=== PATIENT | female | born 1985 | race Caucasian/White ===

== ENCOUNTER 2022-01-31 01:08 | Emergency (ER) | payer SELFPAY ==
--- OUTSIDE RECORDS SUMMARY | 2022-01-31 01:11 | XMS REPORT | Continuity of Care Document ---
:1985 Author Organization [facility] t Address [address] [place] [address] Care Team Providers Name Role Phone Asked, No Pcp Primary Care Physician Unavailable Alberto Mcdaniel [facility] Attending Clinician Unavailable ERASTO MORALES Attending Clinician Unavailable LEONEL MULLER Attending Clinician Unavailable Yusuf Dc MD Attending Clinician Physician, No Primary or Family Admitting Clinician UnavailJennie Berg MA Unavailable Unavailable Klever Miner PA-C Unavailable Payers Payer Name Policy Type Policy Number Effective Date Expiration Date S joann [employer] [place] D [id number] 2021 00:00:00 Women Problems Condition Condition Condition Status Onset Resolution Last Treating Co mments Source Name Details Category Date Date Treatment Clinician Date BMI BMI 91527-6 Active 2021-12-19 Silvana 2 .16.84 20.0-20.9, 20.0-20.9, 10:35:10 Jennie 0.1.113 adult adult 883.4.2 (Renamed (Renamed from Body from Body mass index mass index (BMI) of (BMI) of 20.0 to 20.0 to 20.9 in 20.9 in adult) adult) (Z68.20) (V85.1)RAMIRO Quiros [employer]iveries Deliveries 30372-8 Active 2021-12-19 Michael-Yado, 2.16. (Parity) (Parity)Cr 10:34:48 Jennie 0 .1.113 Anna 883.4.2 RAMIRO [place] ments: 3. Myalgia Myalgia 91798-9 Active 2021-12-20 Miner, 2.1 6.84 (M79.10) 11:03:27 Klever 0.1.11 3 (729.1)Pro 883.4. 2 gnosis: PE is benign- patient has been to ER x 3 with normal work up there. Will check mono for her fatigue/il lness. CT pelvis is WNL as well. Discussed with patient checking labs for autoimmune d/o as well. Encouraged counselroyal landeros. She complains of fatigue and inability to sleep. WIll send in a few days of atarax to help with her anxiety and insomnia. S/E discussed. as of LISA Villavicencio Pregnancie Pregnancie 98404-2 Active 2021-12-19 Michael-Yado, 2.1684 s s 10:34:44 Jennie 0.1.113 () ()C 883 .4.2 RAMIRO Edge ments: 3. Quit using Quit using 90800-9 Active 2021-12-19 Michael-Yado, 2. tobacco tobacco 10:35:01 Jennie 0.1.1 13 (Renamed (Renamed 883.4. 2 from Quit from Quit using using tobacco in tobacco in remote remote past) past) (Z91.89) (V15.89)RAMIRO [place] [address]-8 Active 2021-12-20 Miner, 2.16 alcoholism alcoholism 10:56:48 Klever 0.1.113 (F10.21) 883.4.2 (V11.3)LISA [place] [address]-4 Active 2021-12-20 Kristofer, 2. depression depression 10:56:32 Klever 0.1.113 (Z86.59) 883.4.2 (V11.8)LISA [place] [address]-8 Active 2021-12-20 Kristofer, 2. 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 lesion of lesion of 11:00:28 Klever 0. 1.113 back back 883.4.2 (L98.9) (709.9)Pro gnosis: questionab le etiology- she shows some pictures of the initial lesion and it's just an excoriated sore- this may be skin lesion secondary to chronic picking/ir ritation. Does not appear to be cancerous. She can make apt for excision. as of LISA Villavicencio Allergies, Adverse Reactions, Alerts Allergy Allergy Status Severity Reaction(s) Onset Inactive Treating Comm ents Source Name Type Date Date Clinician Morphine Propensi Active Hives 2021-02 Method i ty to 0-14 st adverse 00:00: Hospita reaction 00 l s to drug morphine DA Active [facility] [place] 00:00: [address] morphine DA Active AR RASH HIVES [facility] [place] 00:00: [address] Morphine Allergy Active 04.12.83 Derivati 0.1.113 ves 883.4.2 Social History Social Habit Start Date Stop Date Quantity Comments Source Alcohol Use: Non Drinker / No 2.16.8 40.1.091508 Alcohol Use. .4.2 Drug Use: No drug use. 2.840.1.1 55709 .4.2 Tobacco use: Never smoker. 2.840. 1.832778 .4.2 Tobacco/Smoke None. 2.840.1. 230026 Exposure: .4.2 Vaping/JUULing: Never smoker. 2.16.8 40.1.896676 .4.2 Sex Ass[birth year] At [birth year] [facility] 00:00:00 00:00:00 Hospital Smoking Status Start Date Stop Date Source Never smoked tobacco Tobacco smoking consumption unknown [facility] Medications Ordered Filled Start Stop Current Ordering Indication Dosage Frequency Signature Comments Components Source Medication Medication Date Date Medication? Clinician (SIG) Name Name Ibuprofen 2021-02 No Ibuprofen 2.1 6.84 800 MG Oral 0-25 800 MG 0.1.11 3 Tablet 10:33: Oral 883.4.2 00 Tablet; (800 MG) Ibuprofen 2021-02 No Ibuprofen 2.1 6.84 800 MG Oral 0-25 800 MG 0.1.11 3 Tablet 10:33: Oral 883.4.2 00 Tablet; (800 MG) Augmentin 2021-02 No Augmentin 2.1 6.84 0-25 0.1.113 10:32: 883.4.2 43 Augmentin 2021-02 No Augmentin 2.1 6.84 0-25 0.1.113 10:32: 883.4.2 43 hydrOXYzine 2021-02 No 0{Table hydrOXYzin Medicat io 2.16.84 HCl 25 MG 0-25 t} e HCl 25 n taken 0.1 .113 Oral Tablet 00:00: MG Oral as 883 .4.2 00 Tablet; needed. 1/2-1 Tablet at bedtime as needed for 5 days Quantity: 5 {Tablet}Re fills: 0Ordered: 2HLISA crespo JamieStart : 2Comments: Medication taken as needed. hydrOXYzine 2021-02 No 0{Table hydrOXYzin Medicat io 2.16.84 HCl 25 MG 0-25 t} e HCl 25 n taken 0.1 .113 Oral Tablet 00:00: MG Oral as 883 .4.2 00 Tablet; needed. 1/2-1 Tablet at bedtime as needed for 5 days Quantity: 5 {Tablet}Re fills: 0Ordered: 2HLISA crespo JamieStart : 2Comments: Medication taken as needed. doxycycline 2021-02 Yes 100mg Q.5D Take 1 Met [facility]odi (VIBRAMYCIN 0-[address] ) 100 MG 00:00: (100 mg Hospit a capsule 00 total) by l mouth 2 (two) times a day. doxycycline 2021-02 Yes 100mg Q.5D Take 1 Met hodi (VIBRAMYCIN 0-[address] ) 100 MG 00:00: (100 mg Hospit a capsule 00 total) by l mouth 2 (two) times a day. bacitracin 2021-02- Yes Q.5D Apply Metho di ointment 0-14 10-[address] tube 00:00: 04:59 2 (two) Hospita 00 :00 times a l day for 15 days. bacitracin 2021-02- No Q.5D Apply Metho di ointment 0-14 10-[address] tube 00:00: 04:59 2 (two) Hospita 00 :00 times a l day for 15 days. hydrOXYzine 2021-02- Yes 25mg Q6H Take 1 Met hodi (ATARAX) 25 0-14 10-25 tablet (25 s t MG tablet 00:00: 04:59 mg total) Ho spita 00 :00 by mouth l every 6 (six) hours for 10 days. hydrOXYzine 2021-02- No 25mg Q6H Take 1 Met hodi (ATARAX) 25 0-14 10-25 tablet (25 s t MG tablet 00:00: 04:59 mg total) Ho spita 00 :00 by mouth l every 6 (six) hours for 10 days. HYDROcodone 2021-02- Yes 35656 1{tbl} Q6H Take 1 Methodi -acetaminop 0-14 10-[address] hen (SiBEAM) 00:00: 04:59 mouth Hosp quoc 5-325 mg 00 :00 every 6 l per tablet (six) hours as needed for moderate pain for up to 7 days .acute pain. Max Daily Amount: 4 tablets HYDROcodone 2021-02- No 21134 1{tbl} Q6H Take 1 Methodi -acetaminop 0-14 10-[address] hen (SiBEAM) 00:00: 04:59 mouth Hosp quoc 5-325 mg 00 :00 every 6 l per tablet (six) hours as needed for moderate pain for up to 7 days .acute pain. Max Daily Amount: 4 tablets Vital Signs Vital Name Observation Time Observation Value Comments Source Temperature 2021-12-19 98.7 [degF] Method: Oral 2.16.840.1.1138 10:29: 83.4.2 Pulse 2021-12-19 86 /min Pattern: Regular 2..840.1. 1138 10:29: 83.4.2 Respiration Rate 2021-12-19 20 /min Pattern: 2.840.1. 1138 10:29:13 Unlabored 83.4.2 BP Systolic 2021-12-19 155 mm[Hg] Patient 2.16.840.1.1138 10:29:13 Position: 83.4.2 Sitting; Cuff Location: Left Arm; Cuff Size: Standard BP Diastolic 2021-12-19 99 mm[Hg] Patient 2.16.840.1.1138 10:29:13 Position: 83.4.2 Sitting; Cuff Location: Left Arm; Cuff Size: Standard Weight 2021-12-19 124.375 [lb_av] 2.16.840.1.1 138 10:29:13 83.4.2 Height 2021-12-19 65 [in_us] 2.16.840.1.1138 10:29:13 83.4.2 BMI 2021-12-19 20.70 kg/m2 2.16.840.1.1138 10:29: 83.4.2 Systolic blood 2021-12-08 142 mm[Hg] Religious pressure 17:30:00 Hospital Diastolic blood 2021-12-08 89 mm[Hg] Religious pressure 17:30:00 Hospital Heart rate 2021-12-08 56 /min Religious 17:30:00 Hospital Body temperature 2021-12-08 37 Pattie Religious 17:30:00 Hospital Respiratory rate 2021-12-08 17 /min Religious 17:30:00 Hospital Oxygen saturation 2021-12-08 96 /min Religious in Arterial blood 17:30:00 Hospital by Pulse oximetry Body height 2021-12-08 162.6 cm Religious 14:06:00 Hospital Body weight 2021-12-08 56.7 kg Religious 14:06:00 [facility] BMI 2021-12-08 21.46 kg/m2 Religious 14:06:00 Hospital Procedures Procedure Date / Time Performing Clinician Source Performed BMI IS DOCUMENTED WITHIN 2021-12-19 00:00:00 Klever Miner 2.1 6.840.1.294073.4 NORMAL PARAMETERS AND NO .2 FOLLOW-UP PLAN IS REQUIRED (G8420) PATIENT SCREENED FOR 2021-12-19 00:00:00 Klever Miner 2.16.84 0.1.376368.4 TOBACCO USE AND .2 IDENTIFIED A TOBACCO NON-USER (G9903) SCREENING FOR TOBACCO USE 2021-12-19 00:00:00 Klever Miner 2. 16.840.1.768872.4 (4004F) .2 HC COMPLETE BLD COUNT 2021-12-08 16:24:00 Yusuf Dc [facility] W/AUTO DIFF CT HEAD WO CONTRAST 2021-12-08 15:38:10 Yusuf Dc [facility] XR CHEST 1 VW PORTABLE 2021-12-08 15:37[facility] 2021-12-08 15:00:29 Yusuf Dc [facility] INTERPRETATION COMPREHENSIVE METABOLIC 2021-12-08 14:51:00 Yusuf Dc [facility] PANEL TROPONIN T 2021-12-08 14:51:00 [facility] 2021-12-08 14:51:00 Yusuf Dc [facility] SCREEN ESTIMATED GFR 2021-12-08 14:51:00 Yusuf Dc spital ECG 12-LEAD 2021-12-08 14:44:31 Yusuf Dc spital Annual Eye Exam - FOR Jennie Pina 2.16.84 0.1.522482.4 NON-DIABETICS ONLY .2 Appendectomy Jennie Pina 2.16.840.1.11 3883.4 .2 Delivery Jennie Pina 2.16.840.1. 847146.4 .2 Patient received annual Jennie Pina 2.16. 840.1.343388.4 dental check-up .2 Plan of Care Planned Activity Planned Date Details Comments Source Future Scheduled 2022-01-24 HEPATITIS B VACCINES Met [facility] Test 21:26:31 (1 of 3 - 3-dose series) [code = HEPATITIS B VACCINES (1 of 3 - 3-dose series)] Future Scheduled 2022-01-24 COVID-19 VACCINE (#1) [facility] Test 21:26:31 [code = COVID-19 VACCINE (#1)] Future Scheduled 2022-01-24 Hepatitis C screening [facility] Test 21:26:31 (procedure) [code = 122222954] Future Scheduled 2022-01-24 Screening for [facility] Test 21:26:31 malignant neoplasm of cervix (procedure) [code = 883260273] Future Scheduled 2022-01-24 INFLUENZA VACCINE Method [facility] Test 21:26:31 [code = INFLUENZA VACCINE] Diagnostic Test 2021-12-19 C-REACTIVE PROTEIN Pending 10:50:25 (95378) [code = 39586] Diagnostic Test 2021-12-19 C-REACTIVE PROTEIN Pending 10:50:25 (98929) [code = 66444] Diagnostic Test 2021-12-19 SED RATE ERYTHROCYTE Pending 10:50:19 (23089) [code = 50600] Diagnostic Test 2021-12-19 SED RATE ERYTHROCYTE Pending 10:50:19 (41316) [code = 89987] Diagnostic Test 2021-12-19 MONOSPOT SCREEN Pending 10:49:43 (92929) [code = 05732] Diagnostic Test 2021-12-19 MONOSPOT SCREEN Pending 10:49:43 (99676) [code = 34855] Diagnostic Test 2021-12-19 TSH (THYROID Pending 10:49:36 STIMULATING HORMONE) (07230) [code = 17811] Future Scheduled 2021-12-14 HEPATITIS B VACCINES Met [facility] Test 19:27:04 (1 of 3 - 3-dose series) [code = HEPATITIS B VACCINES (1 of 3 - 3-dose series)] Future Scheduled 2021-12-14 COVID-19 VACCINE (#1) [facility] Test 19:27:04 [code = COVID-19 VACCINE (#1)] Future Scheduled 2021-12-14 Hepatitis C screening Me [facility] Test 19:27:04 (procedure) [code = 807423579] Future Scheduled 2021-12-14 [facility] Test 19:27:04 malignant neoplasm of cervix (procedure) [code = 316707482] Future Scheduled 2021-12-14 INFLUENZA VACCINE Method [facility] Test 19:27:04 [code = INFLUENZA VACCINE] Encounters Start End Encounter Admission Attending Care Care Encounter Source Date/Time Date/Time Type Type Clinicians Facility Department ID 2021-12-17 Outpatient [place], [facility] [id number] -[id number] [place] 17:22:22 Replaced by [facility] [id number] [facility] [address] 2021-12-15 Outpatient [place], [facility] [id number] -[id number] [place] 10:10:04 Replaced by [facility] [id number] [facility] [address] 2021-12-14 Outpatient [place], [facility] [id number] -[id number] [place] 14:42:40 Replaced by [facility] [id number] [facility] [address] 2019-03-05 Inpatient [facility] [id number] [facility] 14:39:00 [id number] [facility] 2021-12-19 2021-12-20 Office 0 Alberto [id number] 10:00:00 11:03:47 Visit 06 2021-12-19 2021-12-19 Outpatient [place], [facility] 2468 [id number] [place] 10:15:00 10:15:00 Replaced by [facility] [id number] [facility] 2021-12-18 2021-12-19 Emergency E ANDREW, M[facility] M[facility]W [id number] MHTW 20:53:00 05:50:00 ERASTO 2021-12-14 2021-12-15 Emergency E YOHANA, MHTW MHTW 7512 MHTW 19:46:00 02:45:00 LEONEL 2021-12-08 2021-12-08 Emergency Dc, 1.2.840.1 [id number] Methodi 09:07:00 12:44:[address] 3.430.2.7 Hospit a .3.903023 l .8 2021-12-08 2021-12-08 Emergency Dc, 1.2.840.1 [id number] Methodi 09:07:00 12:44:00 Yus[address] Cordero [address] 3.430.2.7 Hospit a .3.819710 l .8 2021-12-08 2021-12-08 Travel 1.2.840.1 1.2.393.003 [id number] Methodi 00:00:00 00:00:[address] 3.430.2.7 0.2.7.3.698 Ho spita .3.976087 084.8 l .8 2021-12-08 2021-12-08 Travel 1.2.840.1 1.2.246.890 8480 [id number] Methodi 00:00:00 00:00:[address] 3.430.2.7 0.2.7.3.698 Ho spita .3.866489 084.8 l .8 2018-06-09 2018-06-09 Emergency E MHTW TW 7511 TW 13:55:00 13:55:00 Results Test Description Test Time Test Comments Results Result Comments Source TSH (THYROID STIMULATING HORMONE) (12181) 2021-12-19 00:00:0 0 Test Item Value Reference Range Interpretation Comme nts TSH (test code = 3016-3) 2.24 {mIU/L} N Ref erence Range > or = 20 Years 0.40-4.50 Range s First trimester 0.26-2.66 Second trimeste r 0.55-2.73 Third trimester 0.43-2.91Test P erformed at:[facility] [id number] [place] [address] ROHIT WHITNEY MD ECG 12 [id number] 20:07:15 Test Item Value Reference Range Interpretation Comments Ventricular rate (test code = 253) Atrial rate (test code = 255) GA interval (test code = 266) QRSD interval (test code = 260) QT interval (test code = 264) QTC interval (test code = 265) P axis 1 (test code = 267) QRS axis 1 (test code = 268) T wave axis (test code = 270) EKG impression (test Normal sinus code = 273) rhythm-Normal ECG-No previous ECGs available-Electronical ly Signed By John Meek MD ([id number]) on 12/13/2021 3:07:08 PM [facility] 12 [id number] 20:07:15 Test Item Value Reference Range Interpretation Comments Ventricular rate (test code = 253) Atrial rate (test code = 255) GA interval (test code = 266) QRSD interval (test code = 260) QT interval (test code = 264) QTC interval (test code = 265) P axis 1 (test code = 267) QRS axis 1 (test code = 268) T wave axis (test code = 270) EKG impression (test Normal sinus code = 273) rhythm-Normal ECG-No previous ECGs available-Electronical ly Signed By John Meek MD ([id number]) on 12/13/2021 3:07:08 [facility] [id number] 15:42:00 Test Item Value Reference Range Interpretation Comments TOTAL PROTEIN (test code 7.5 G/DL 6.4-8.2 N = PROT) ALBUMIN (test code = ALB) 3.2 G/DL 3.4-5.0 L BILIRUBIN TOTAL (test 0.33 MG/DL 0.00-1.00 N code = BILT) BILIRUBIN DIRECT (test 0.12 MG/DL 0.00-0.30 N code = BILD) BILIRUBIN INDIRECT (test 0.21 MG/DL 0.2-1.3 N code = BILIND) SGOT/AST (test code = 16 Unit/L 15-37 N AST) SGPT/ALT (test code = 29 Unit/L 12-78 N ALT) ALKALINE PHOSPHATASE 85 Unit/L 45-117 N TOTAL (test code = ALKP) INDEX HEMOLYSIS (test 1 NORMAL <10 MG 1 NORMAL code = HEMINDEX) Index/DL INDEX ICTERIC (test code 1 NORMAL <2 MG 1 NORMAL = ICTINDEX) Index/DL INDEX LIPEMIA (test code 1 NORMAL <50 MG 1 NORMAL = LIPINDEX) Index/DL [id number] 15:42:00 Test Item Value Reference Range Interpretation Comments LIPASE (test code = LIP) 42 Unit/L 114-286 L HEPATIC FUNCTION [id number] 15:34:00 Test Item Value Reference Range Interpretation Comments TOTAL PROTEIN (test code G/DL 6.4-8.2 = PROT) ALBUMIN (test code = ALB) G/DL 3.4-5.0 BILIRUBIN TOTAL (test MG/DL 0.00-1.00 code = BILT) BILIRUBIN DIRECT (test MG/DL 0.00-0.30 code = BILD) BILIRUBIN INDIRECT (test MG/DL 0.2-1.3 code = BILIND) SGOT/AST (test code = Unit/L 15-37 AST) SGPT/ALT (test code = Unit/L 12-78 ALT) ALKALINE PHOSPHATASE Unit/L 45-117 TOTAL (test code = ALKP) INDEX HEMOLYSIS (test 1 NORMAL <10 MG 1 NORMAL code = HEMINDEX) Index/DL INDEX ICTERIC (test code 1 NORMAL <2 MG 1 NORMAL = ICTINDEX) Index/DL INDEX LIPEMIA (test code 1 NORMAL <50 MG 1 NORMAL = LIPINDEX) Index/DL [id number] 15:34:00 Test Item Value Reference Range Interpretation Comments LIPASE (test code = LIP) Unit/L 114-286 CBC W/O [id number] 15:19:00 Test Item Value Reference Range Interpretation Comments WHITE BLOOD CELL (test code = WBC) 10.6 K/mm3 4.1-12.1 N RED BLOOD CELL (test code = RBC) 3.49 M/mm3 3.8-5.5 L HEMOGLOBIN (test code = HGB) 11.4 G/DL 10.6-15.8 N HEMATOCRIT (test code = HCT) 33.1 % 31.8-47.4 N MEAN CELL VOLUME (test code = MCV) 94.8 fL 80.1-101.1 N MEAN CELL HGB (test code = MCH) 32.7 pg 25.3-35.3 N MEAN CELL HGB CONCETRATION (test 34.4 G/DL 32.7-35.1 N code = MCHC) RED CELL DISTRIBUTION WIDTH (test 12.7 % 12.2-16.4 N code = RDW) PLATELET COUNT (test code = PLT) 406 K/mm3 155-337 H MEAN PLATELET VOLUME (test code = 9.2 fL 6.8-11.2 N MPV) CHEMISTRY 7 [id number] 15:15:00 Test Item Value Reference Range Interpretation Comments IONIZED CALCIUM (test mmol/L 1.13-1.32 code = CAIABG) ISTAT-TCO2 VENOUS (test MMOL/L 21-32 N code = TCO2VP) ISTAT-SODIUM (test code MMOL/L 135-148 = NAP) ISTAT-POTASSIUM (test MMOL/L 3.5-5.9 code = KP) ISTAT-CHLORIDE (test MMOL/L 98-106 code = CLP) ISTAT-ANION GAP (test MEQ/L 10-20 code = GAPP) ISTAT-GLUCOSE (test MG/DL 70-119 N code = GLUP) ISTAT-BUN (test code = MG/DL 8-28 L METHO D ALERT VALUE - BUNP) OUTSIDE METHOD DIAGNOSTIC LIMIT.EVALUATE WITH CAUTION, VALUE BELOW METHOD MEASUREM ENT LIMIT. BEDSIDE CREATININE MG/DL 0.6-1.2 N (test code = CREATBED) GLOMERULAR FILTRATION 117 64-149 N RATE POC (test code = GFRBED) CHEMISTRY 7 [id number] 15:15:00 Test Item Value Reference Range Interpretation Comments IONIZED CALCIUM 1.10 mmol/L 1.13-1.32 L (test code = CAIABG) ISTAT-TCO2 VENOUS 30 MMOL/L 21-32 N (test code = TCO2VP) ISTAT-SAMPLE SOURCE VENOUS SPECIMEN Specimen (test code = Descript SRCIST) ISTAT-SODIUM (test 139 MMOL/L 135-148 N code = NAP) ISTAT-POTASSIUM 3.8 MMOL/L 3.5-5.9 N (test code = KP) ISTAT-CHLORIDE 100 MMOL/L 98-106 N (test code = CLP) ISTAT-ANION GAP 14.0 MEQ/L 10-20 N (test code = GAPP) ISTAT-GLUCOSE (test 105 MG/DL 70-119 N code = GLUP) ISTAT-BUN (test <5 BELOW LO 8-28 L METHOD ALERT VALUE code = BUNP) LIMIT MG/DL - OUTSIDE METHO D DIAGNOSTIC LIMIT.EVALUATE WITH CAUTION, VALUE BELOW METHOD MEASUREMENT MCKEON IT. BEDSIDE CREATININE 0.6 MG/DL 0.6-1.2 N (test code = CREATBED) GLOMERULAR 117 64-149 N FILTRATION RATE POC (test code = GFRBED) UA RFLX MICR CULT IF [id number] 15:13:00 Test Item Value Reference Range Interpretation Comments UA COLOR (test code = YELLOW DESCRIPT YELLOW COLU) UA APPEARANCE (test code HAZY DESCRIPT CLEAR = APPU) UA GLUCOSE DIPSTICK (test NEGATIVE (0) mg/dL (NEG) 0 code = DGLUU) UA BILIRUBIN DIPSTICK NEGATIVE (0) mg/dL (NEG) 0 (test code = BILU) UA KETONE DIPSTICK (test 0 (NEG) mg/dL (NEG) 0 code = KETU) UA SPECIFIC GRAVITY (test 1.015 SG 1.001-1.035 code = SGU) UA BLOOD DIPSTICK (test 0.06-0.10 (1+) mg/DL (NEG) 0 A code = LIBERTAD) UA PH DIPSTICK (test code 6.0 pH UNITS 4.6-8.0 = EUGENIO) UA PROTEIN DIPSTICK (test NEGATIVE (0) mg/dL <30 (1+) code = PROU) UA UROBILINIOGEN DIPSTICK NORMAL (0) mg/dL <2.0 (1+) (test code = URO) UA NITRITE DIPSTICK (test NEGATIVE (0) SCREEN NEG code = MALIHA) UA LEUKOCYTE ESTERASE 250 (2+) Leuk/mcL (NEG) 0 A DIPSTICK (test code = LEUU) UA COMMENT (test code = CLEAN CATCH SPEC SpecComment COMU) Notes UA WBC (test code = WBCU) 30-40 #WBC/HPF 0-3 A UA RBC (test code = RBCU) 0-3 #RBC/HPF 0-3 UA SQUAMOUS CELLS (test FEW >2 /HPF NONE-SQepi code = SQU) UA MUCUS (test code = RARE /LPF NONE MUCU) UA CULTURE NEEDED? (test Crit met CULT-OK Cult byWBC code = UACULT) Criteria Indication for culture: ABD PAINUR HCG [id number] 15:13:00 Test Item Value Reference Range Interpretation Comments UR HCG QUAL (test code = HCGQLU) NEG Indication for culture: ABD PAINUA RFLX MICR CULT IF [id number] 15:13:00 Test Item Value Reference Range Interpretation Comments UA COLOR (test code = YELLOW DESCRIPT YELLOW COLU) UA APPEARANCE (test code HAZY DESCRIPT CLEAR = APPU) UA GLUCOSE DIPSTICK (test NEGATIVE (0) mg/dL (NEG) 0 code = DGLUU) UA BILIRUBIN DIPSTICK NEGATIVE (0) mg/dL (NEG) 0 (test code = BILU) UA KETONE DIPSTICK (test 0 (NEG) mg/dL (NEG) 0 code = KETU) UA SPECIFIC GRAVITY (test 1.015 SG 1.001-1.035 code = SGU) UA BLOOD DIPSTICK (test 0.06-0.10 (1+) mg/DL (NEG) 0 A code = LIBERATD) UA PH DIPSTICK (test code 6.0 pH UNITS 4.6-8.0 = EUGENIO) UA PROTEIN DIPSTICK (test NEGATIVE (0) mg/dL <30 (1+) code = PROU) UA UROBILINIOGEN DIPSTICK NORMAL (0) mg/dL <2.0 (1+) (test code = URO) UA NITRITE DIPSTICK (test NEGATIVE (0) SCREEN NEG code = MALIHA) UA LEUKOCYTE ESTERASE 250 (2+) Leuk/mcL (NEG) 0 A DIPSTICK (test code = LEUU) UA COMMENT (test code = CLEAN CATCH SPEC SpecComment COMU) Notes UA WBC (test code = WBCU) 30-40 #WBC/HPF 0-3 A UA RBC (test code = RBCU) 0-3 #RBC/HPF 0-3 UA SQUAMOUS CELLS (test FEW >2 /HPF NONE-SQepi code = SQU) UA MUCUS (test code = RARE /LPF NONE MUCU) UA CULTURE NEEDED? (test Crit met CULT-OK Cult byWBC code = UACULT) Criteria Indication for culture: ABD PAINUR HCG [id number] 15:13:00 Test Item Value Reference Range Interpretation Comments UR HCG QUAL (test NEGATIVE NEG Very dilut e urines with a code = HCGQLU) low specific gravity may notcontain repr esentative levels of hCG. Indication for culture: ABD PAIN
[2022-01-31] MEDS ORDERED: NA CHLORIDE 0.9% 500 ML ONE (01:34)
[2022-01-31 02:09] LABS: Absolute Lymphocytes (CBC) 1.3 K/uL (0.7-4.9); Lymphocytes % 18.3 % (15.3-44.8); MCV 91.9 fL (80-100); RBC Red Blood Cell Count 4.25 M/uL (3.86-4.86)
[2022-01-31 02:18] LABS: Albumin 3.8 g/dL (3.4-5.0); Bilirubin Total 0.3 mg/dL (0.2-1.0); Potassium 3.3 mmol/L (3.5-5.1); Protein, Total 7.2 g/dL (6.4-8.2)
[2022-01-31 02:18] LABS: Urine Blood 3+ (Negative); Urine Glucose Negative (Negative); Urine Protein 2+ (Negative); Urine Specific Gravity 1.025 (1.005-1.030); Urine pH 6.5 (5.0-7.0)
[2022-01-31] MEDS ORDERED: CEFTRIAXONE 1000 MG/VIAL ONE (02:44)
--- NOTE | 2022-01-31 03:20 | EDPHYS ---
Physician Documentation [facility] Name: Betzaida Ceja Age: 36 yrs Sex: Female : 1985 Arrival Date: 01/31/2022 Time: 01:13 Bed 8 Private MD: Elie Mason HPI: 01/31 01:31 This 36 yrs old Female presents to ER via Unassigned with complaints of tomasa Vaginal Pain, Rib pain. 01:31 The patient presents with urinary symptoms, vaginal bleeding that is. Onset: The tomasa symptoms/episode began/occurred 2 day(s) ago. Modifying factors: The symptoms are alleviated by nothing, the symptoms are aggravated by nothing. Associated signs and symptoms: The patient has no apparent associated signs or symptoms. Severity of symptoms: At their worst the symptoms were mild, moderate, in the emergency department the symptoms are unchanged. The patient is sexually active, reportedly has a single partner. The patient has not experienced similar symptoms in the past. 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 - Social history:: Smoking status: Patient denies any tobacco usage or history of. - Family history:: not pertinent. ROS: 01:31 Constitutional: Negative for fever, chills, and weight loss, Eyes: Negative for injury, tomasa pain, redness, and discharge, ENT: Negative for injury, pain, and discharge, Neck: Negative for injury, pain, and swelling, Cardiovascular: Negative for chest pain, palpitations, and edema, Respiratory: Negative for shortness of breath, cough, wheezing, and pleuritic chest pain, Abdomen/GI: Negative for abdominal pain, nausea, vomiting, diarrhea, and constipation, Back: Negative for injury and pain, MS/Extremity: Negative for injury and deformity, Skin: Negative for injury, rash, and discoloration, Neuro: Negative for headache, weakness, numbness, tingling, and seizure, Psych: Negative for depression, anxiety, suicide ideation, homicidal ideation, and hallucinations, Allergy/Immunology: Negative for hives, rash, and allergies, Endocrine: Negative for neck swelling, polydipsia, polyuria, polyphagia, and marked weight changes, Hematologic/Lymphatic: Negative for swollen nodes, abnormal bleeding, and unusual bruising. :31 : Positive for pelvic pain, burning with urination, difficulty urinating, vaginal bleeding. Exam: :31 Constitutional: This is a well developed, well nourished patient who is awake, alert, tomasa and in no acute distress. Head/Face: Normocephalic, atraumatic. Eyes: Pupils equal round and reactive to light, extra-ocular motions intact. Lids and lashes normal. Conjunctiva and sclera are non-icteric and not injected. Cornea within normal limits. Periorbital areas with no swelling, redness, or edema. ENT: Nares patent. No nasal discharge, no septal abnormalities noted. Tympanic membranes are normal and external auditory canals are clear. Oropharynx with no redness, swelling, or masses, exudates, or evidence of obstruction, uvula midline. Mucous membranes moist. Neck: Trachea midline, no thyromegaly or masses palpated, and no cervical lymphadenopathy. Supple, full range of motion without nuchal rigidity, or vertebral point tenderness. No Meningismus. Chest/axilla: Normal chest wall appearance and motion. Nontender with no deformity. No lesions are appreciated. Cardiovascular: Regular rate and rhythm with a normal S1 and S2. No gallops, murmurs, or rubs. Normal PMI, no JVD. No pulse deficits. Respiratory: Lungs have equal breath sounds bilaterally, clear to auscultation and percussion. No rales, rhonchi or wheezes noted. No increased work of breathing, no retractions or nasal flaring. Back: No spinal tenderness. No costovertebral tenderness. Full range of motion. Skin: Warm, dry with normal turgor. Normal color with no rashes, no lesions, and no evidence of cellulitis. MS/ Extremity: Pulses equal, no cyanosis. Neurovascular intact. Full, normal range of motion. Neuro: Awake and alert, GCS 15, oriented to person, place, time, and situation. Cranial nerves II-XII grossly intact. Motor strength 5/5 in all extremities. Sensory grossly intact. Cerebellar exam normal. Normal gait. Psych: Awake, alert, with orientation to person, place and time. Behavior, mood, and affect are within normal limits. 01:31 Abdomen/GI: Inspection: abdomen appears normal, Bowel sounds: normal, Palpation: mild abdominal tenderness, in the left lower quadrant, Liver: no appreciated palpable abnormalities, Hernia: not appreciated. 02:00 : CVA tenderness, is absent, Pelvic Exam: External exam: is normal, Speculum exam: tomasa scant bleeding, bimanual exam reveals normal findings, no cervical motion tenderness, discharge, is not appreciated, the nurse was present for the exam, Bladder: is normal, non-distended, non-tender, Sexual behavior: the patient is sexually active. Vital Signs: 01:31 BP 142 / 96; Pulse 108; Resp 16 S; Temp 98.4(O); Pulse Ox 100% on R/A; Weight 53.98 kg bb (R); Height 5 ft. 4 in. (162.56 cm) (R); Pain 4/10; 02:30 BP 155 / 100; Pulse 90; Resp 16; Pulse Ox 100% on R/A; ll3 03:31 BP 140 / 105; Pulse 87; Resp 16; Pulse Ox 100% on R/A; ll3 04:34 BP 142 / 104; Pulse 89; Resp 16; Pulse Ox 100% on R/A; ll3 01:31 Body Mass Index 20.43 (53.98 kg, 162.56 cm) bb MDM: 01:21 Patient medically screened. tomasa 01:58 Differential diagnosis: dysmenorrhea, menometrorrhagia, nonspecific abdominal pain, tomasa urinary tract infection. Data reviewed: vital signs, nurses notes, lab test result(s), radiologic studies, CT scan. Data interpreted: front desk monitor: rate is 108 beats/min, rhythm is regular, Pulse oximetry: on room air is 100 %. Counseling: I had a detailed discussion with the patient and/or guardian regarding: the historical points, exam findings, and any diagnostic results supporting the discharge/admit diagnosis, lab results, radiology results, the need for outpatient follow up, for definitive care, an OB/Gyne specialist. 01/31 01:30 Order name: CBC with Diff; Complete Time: 03:19 tomasa 01/31 01:30 Order name: Comprehensive Metabolic Panel; Complete Time: 03:19 [facility] 01/31 01:30 Order name: Urine Culture [facility] 01/31 01:30 Order name: CT Abd/Pelvis - IV Contrast Only [facility] 01/31 02:18 Order name: Urine Dipstick-Ancillary; Complete Time: 03:19 EDMS 01/31 02:39 Order name: Urine --Ancillary (enter results) mw2 01/31 01:30 Order name: Urine Dipstick-Ancillary (obtain specimen); Complete Time: 02:32 [facility] 01/31 01:30 Order name: Urine Test (obtain specimen); Complete Time: 02:37 [facility] 01/31 01:30 Order name: Pelvic Exam Setup; Complete Time: 02:32 [facility] Administered Medications: 01:50 Drug: NS 0.9% 500 ml Route: IV; Rate: bolus; Site: right antecubital; ll3 02:59 Drug: Rocephin (cefTRIAXone) 1 grams Route: IV; Rate: per protocol; Site: right ll3 antecubital; Disposition Summary: 01/31/22 03:19 Discharge Ordered Location: Home tomasa Problem: new tomasa Symptoms: have improved tomasa Condition: Stable tomasa Diagnosis - Other specified abnormal uterine and vaginal bleeding tomasa - Dysmenorrhea, unspecified tomasa - Hypokalemia tomasa - Other hemorrhoids - NOT THROMBOSED, NOT BLEEDING tomasa Followup: tomasa - With: Private Physician - When: 2 - 3 days - Reason: Recheck today's complaints, Re-evaluation by your physician Followup: tomasa - With: - When: 2 - 3 days - Reason: Recheck today's complaints, Continuance of care, Re-evaluation by your physician Followup: tomasa - With: Tabatha Yancey MD - When: 2 - 3 days - Reason: Recheck today's complaints, Re-evaluation by your physician Discharge Instructions: - Discharge Summary Sheet tomasa - Potassium Content of Foods tomasa - Dysmenorrhea tomasa - Menorrhagia tomasa - Metrorrhagia tomasa - Hemorrhoids tomasa - Menorrhagia, [id number] tomasa - Dysmenorrhea, [id number] tomasa - Metrorrhagia, [id number] tomasa - Hypokalemia tomasa - How to Take a Sitz Bath tomasa - Hemorrhoids, [id number] tomasa Forms: - Medication Reconciliation Form tomasa - Thank You Letter tomasa - Antibiotic Education tomasa - Prescription Opioid Use tomasa Prescriptions: - Cipro 250 mg Oral Tablet - take 1 tablet by ORAL route every 12 hours; 14 tablet; Refills: 0, Product [facility] Selection Permitted - Tylenol-Codeine #3 300 mg-30 mg Oral - take 2 tablet by ORAL route every 6 hours; 15 tablet; Refills: 0, Product [facility] Selection Permitted Signatures: Dispatcher [employer] Elie Sheridan MD MD cha Ballard, Brenda RN RN bb Ashley Connor RN RN ll3
--- NOTE | 2022-01-31 03:20 | ER ---
Nurse's Notes [facility] Name: Betzaida Ceja Age: 36 yrs Sex: Female : 1985 Arrival Date: 01/31/2022 Time: 01:13 Bed 8 Private MD: Diagnosis: Other specified abnormal uterine and vaginal bleeding;Dysmenorrhea, unspecified;Hypokalemia;Other hemorrhoids-NOT THROMBOSED, NOT BLEEDING Presentation: 01/31 01:31 Chief complaint: Patient states: she is having some unusual vaginal bleeding with dull bb abdominal pain since yesterday. Coronavirus screen: At this time, the client does not indicate any symptoms associated with coronavirus-19. Ebola Screen: No symptoms or risks identified at this time. Initial Sepsis Screen: Does the patient meet any 2 criteria? No. Patient's initial sepsis screen is negative. Does the patient have a suspected source of infection? No. Patient's initial sepsis screen is negative. Risk Assessment: Do you want to hurt yourself or someone else? Patient reports no desire to harm self or others. Onset of symptoms was January 30, 2022. 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 - Social history:: Smoking status: Patient denies any tobacco usage or history of. - Family history:: not pertinent. Screenin:29 Abuse screen: Denies threats or abuse. Denies injuries from another. Nutritional ll3 screening: No deficits noted. Tuberculosis screening: No symptoms or risk factors identified. Fall Risk None identified. Assessment: 01:30 General: Appears uncomfortable, Behavior is calm, cooperative. Pain: Complains of pain ll3 in pelvis Pain does not radiate. Neuro: Level of Consciousness is awake, alert, obeys commands, Oriented to person, place, time, situation. Respiratory: Respiratory effort is even, unlabored, Respiratory pattern is regular, symmetrical. : Reports pain in suprapubic area vaginal bleeding that is. Derm: Skin is pink, warm \T\ dry. 02:30 Reassessment: No changes from previously documented assessment. Patient and/or family ll3 updated on plan of care and expected duration. Pain level reassessed. Patient is alert, oriented x 3, equal unlabored respirations, skin warm/dry/pink. 03:31 Reassessment: No changes from previously documented assessment. Patient and/or family ll3 updated on plan of care and expected duration. Pain level reassessed. Patient is alert, oriented x 3, equal unlabored respirations, skin warm/dry/pink. Vital Signs: 01:31 BP 142 / 96; Pulse 108; Resp 16 S; Temp 98.4(O); Pulse Ox 100% on R/A; Weight 53.98 kg bb (R); Height 5 ft. 4 in. (162.56 cm) (R); Pain 4/10; 02:30 BP 155 / 100; Pulse 90; Resp 16; Pulse Ox 100% on R/A; ll3 03:31 BP 140 / 105; Pulse 87; Resp 16; Pulse Ox 100% on R/A; ll3 04:34 BP 142 / 104; Pulse 89; Resp 16; Pulse Ox 100% on R/A; ll3 01:31 Body Mass Index 20.43 (53.98 kg, 162.56 cm) bb ED Course: 01:13 Patient arrived in ED. bp1 01:21 Elie Acosta MD is Attending Physician. tomasa 01:33 Triage completed. bb 01:33 Arm band placed on Patient placed in an exam room, on a stretcher, on pulse oximetry. bb 01:50 Inserted saline lock: 22 gauge in right antecubital area, using aseptic technique. ll3 Blood collected. 02:56 CT Abd/Pelvis - IV Contrast Only In Process Unspecified. EDMS 03:19 You Patel MD is Referral Physician. tomasa 03:29 Patient has correct armband on for positive identification. Placed in gown. Bed in low ll3 position. Call light in reach. Side rails up X 1. 03:29 Assist provider with pelvic exam: Set up pelvic tray. Performed by Elie Acosta MD ll3 Patient tolerated well. 04:19 Referral Physician role handed off by You Patel MD [facility] 04:19 Tabatha Yancey MD is Referral Physician. [facility] 04:33 IV discontinued, intact, bleeding controlled, No redness/swelling at site. Pressure ll3 dressing applied. Administered Medications: 01:50 Drug: NS 0.9% 500 ml Route: IV; Rate: bolus; Site: right antecubital; ll3 02:59 Drug: Rocephin (cefTRIAXone) 1 grams Route: IV; Rate: per protocol; Site: right ll3 antecubital; Medication: 03:30 VIS not applicable for this client. ll3 Outcome: 03:19 Discharge ordered by MD. [facility] 04:33 Discharged to home ambulatory. ll3 04:33 Condition: stable 04:33 Discharge instructions given to patient, Instructed on discharge instructions, follow up and referral plans. medication usage, Demonstrated understanding of instructions, follow-up care, medications, Prescriptions given X 2. 04:34 Patient left the ED. ll3 Signatures: Dispatcher [employer] EDMS Elie Acosta MD MD cha Ballard, Brenda, RN RN Mayra Mcclellan Lyn[place], RN RN ll3
[2022-01-31 03:33] LABS: Urine Specific Gravity/Preg 1.025 (1.005-1.030)
[2022-01-31 12:09] VITALS: TEMP 98.4; O2SAT 100
[2022-01-31 12:13] VITALS: BP 140/105
--- NOTE | 2022-01-31 14:54 | RAD REPORT ---
EXAM DESCRIPTION: CT - Abdomen Pelvis W Contrast - 01/31/2022 7:15 am CLINICAL HISTORY: 36 years, Female, na COMPARISON: None. TECHNIQUE: Contrast-enhanced images of the abdomen and pelvis were performed utilizing 5 mm slice th ickness at 5 mm interval reconstruction from the lung bases to the ischial tuberosities after the adm inistration of IV contrast. In addition multiplanar reformats in the coronal and sagittal plane were obtained and reviewed. This exam was performed according to our departmental dose-optimization protocol, which includes auto mated exposure control, adjustment of the mA and/or kV according to patient size and/or use of iterat irasema reconstruction technique. FINDINGS: The lung bases demonstrate to be clear. The liver, gallbladder, pancreas, spleen and adrenal glands demonstrate to be unremarkable, no focal lesions are noted. The kidneys demonstrate normal uptake of contrast media. No evidence for nephrolithiasis and/or hydro nephrosis. Grossly the unopacified stomach demonstrated presence of surgical clips within the region of the less er curvature of the stomach, small bowel and large bowel demonstrate to be within normal limits. Th ere is no evidence for bowel dilatation/or free air. The appendix was not visualized although no si gnificant inflammatory changes are seen within the right lower quadrant. There is mild fecal stasis. The urinary bladder demonstrate to be unremarkable. The uterus is unremarkable. There are no adnexa l masses. Findings suggest perhaps tubal ligation with clips along the left pelvic region. The aorta demonstrate to be normal. There is no retroperitoneal lymphadenopathy. There is no evidence for asc ites/or significant abnormal fluid collections. The rest of the soft tissue and bony structures are w ithin normal limits. IMPRESSION: Mild fecal stasis. Surgical clips lesser curvature of the stomach area. Otherwise unremarkable CT scan of the abdomen and pelvis with contrast. Electronically signed by: Christophe Madsen MD 01/31/2022 3:19 AM DRAMATIC COACH Due to temporary technical issues with the PACS/Fluency reporting system, reports are being signed by the in house radiologists without review as a courtesy to insure prompt reporting. The interpreting radiologist is fully responsible for the content of the report.
== END 2022-01-31 04:34 | disposition home or self-care (01) ==
LOC: ER 01:08
DX: N94.6 Dysmenorrhea, unspecified (principal); E87.6 Hypokalemia; K64.8 Other hemorrhoids
CPT/HCPCS: 36415; 74177; 80053; 81003; 81025; 85025; 87086; 87088; J7040; Q9967

== ENCOUNTER 2022-02-07 22:08 | Emergency (ER) | payer SELFPAY ==
--- OUTSIDE RECORDS SUMMARY | 2022-02-07 22:12 | XMS REPORT | Continuity of Care Document ---
:1985 Author Organization [facility] t Address [address] [place] [address] Care Team Providers Name Role Phone Asked, No Pcp Primary Care Physician Unavailable Alberto Mcdaniel [facility] Attending Clinician Unavailable ERASTO MORALES Attending Clinician Unavailable LEONEL MULLER Attending Clinician Unavailable Yusuf Dc MD Attending Clinician Physician, No Primary or Family Admitting Clinician UnavailJennie Berg MA Unavailable Unavailable Klever Miner PA-C Unavailable Payers Payer Name Policy Type Policy Number Effective Date Expiration Date S joann [employer] [place] D [id number] 2021 00:00:00 Women Problems Condition Condition Condition Status Onset Resolution Last Treating Co mments Source Name Details Category Date Date Treatment Clinician Date BMI BMI 52100-1 Active 2021-12-19 Singh Pina .16.84 20.0-20.9, 20.0-20.9, 10:35:10 Jennie 0.1.113 adult adult 883.4.2 (Renamed (Renamed from Body from Body mass index mass index (BMI) of (BMI) of 20.0 to 20.0 to 20.9 in 20.9 in adult) adult) (Z68.20) (V85.1)Russelu RAMIRO Becerril [employer] Deliveries 44207-0 Active 2021-12-19 Michael-Yado, 2. (Parity) (Parity)Cr 10:34:48 Jennie 0 .1.113 Anna 883.4.2 RAMIRO [place] ments: 3. Myalgia Myalgia 38721-7 Active 2021-12-20 Miner, 2.1 6.84 (M79.10) 11:03:27 [...] discussed. as of LISA Villavicencio Pregnancie Pregnancie 52163-1 Active 2021-12-19 Michael-Yado, 2.16 s s 10:34:44 Jennie 0.1.113 () ()C 883 .4.2 RAMIRO Edge ments: 3. Quit using Quit using 46779-9 Active 2021-12-19 Michael-Yado, 2. tobacco tobacco 10:35:01 Jennie 0.1.1 13 (Renamed (Renamed 883.4. 2 from Quit from Quit using using tobacco in tobacco in remote remote past) past) (Z91.89) (V15.89)RAMIRO [place] [address]-9 Active 2021-12-20 Miner, 2.16 alcoholism alcoholism 10:56:48 Klever 0.1.113 (F10.21) 883.4.2 (V11.3)LISA [place] [address]-9 Active 2021-12-20 Kristofer, 2. depression depression 10:56:32 Klever 0.1.113 (Z86.59) 883.4.2 (V11.8)LISA [place] [address]-4 Active 2021-12-20 Kristofer, 2. 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 lesion of lesion [...] l s to drug morphine [facility] [place] [facility] [place] [facility] Morphine Allergy Active 04.12.83 Derivati 0.1.113 ves 883.4.2 Social History Social Habit Start Date Stop Date Quantity Comments Source Alcohol Use: Non Drinker / No 2.16.8 40.1.755900 Alcohol Use. .4.2 Drug Use: No drug use. 840.1.1 74068 .4.2 Tobacco use: Never smoker. 2840. 1.948160 .4.2 Tobacco/Smoke None. 840.1. 225650 Exposure: .4.2 Vaping/JUULing: Never smoker. 2.16.8 40.1.671378 .4.2 Sex Assigned At [birth year] [facility] Smoking Status Start Date Stop Date Source Never smoked tobacco Tobacco smoking consumption unknown [facility] Medications Ordered Filled Start Stop Current Ordering [...] hours for 10 days. HYDROcodone 2021-02- Yes 32898 1{tbl} Q6H Take 1 Methodi -acetaminop 0-14 10-[address] [facility] ([facility]) 00:00: 04:59 mouth Hosp quoc 5-325 mg 00 :00 every 6 l per tablet (six) hours as needed for moderate pain for up to 7 days .acute pain. Max Daily Amount: 4 tablets HYDROcodone 2021-02- No 88138 1{tbl} Q6H Take 1 Methodi -acetaminop 0-14 10-[address] [facility] ([facility]) 00:00: 04:59 mouth Hosp quoc 5-325 mg 00 :00 every 6 l per tablet (six) hours as needed for moderate pain for up to 7 days .acute pain. Max Daily Amount: 4 tablets Vital Signs Vital Name Observation Time Observation Value Comments Source Temperature 2021-12-19 98.7 [degF] Method: Oral 2.16.840.1.1138 10:29:13 83.4.2 Pulse 2021-12-19 86 /min Pattern: Regular 2..840.1. 1138 10:29: 83.4.2 Respiration Rate 2021-12-19 20 /min Pattern: 2.840.1. 1138 10:29:13 Unlabored 83.4.2 BP Systolic 2021-12-19 155 mm[Hg] Patient 2.840.1.1138 10:29:13 Position: 83.4.2 Sitting; Cuff Location: Left Arm; Cuff Size: Standard BP Diastolic 2021-12-19 99 mm[Hg] Patient 2.16.840.1.1138 10:29:13 Position: 83.4.2 Sitting; Cuff Location: Left Arm; Cuff Size: Standard Weight 2021-12-19 124.375 [lb_av] 2.16.840.1.1 138 10:29:13 83.4.2 Height 2021-12-19 65 [in_us] 2.16.840.1.1138 10:29:13 83.4.2 BMI 2021-12-19 20.70 kg/m2 2.16.840.1.1138 10:29:13 83.4.2 Systolic blood 2021-12-08 142 mm[Hg] [facility] pressure 17:30:00 [facility] Diastolic blood 2021-12-08 89 mm[Hg] [facility] pressure 17:30:00 Hospital Heart rate 2021-12-08 56 /min [facility] 17:30:00 [facility] Body temperature 2021-12-08 37 Pattie [facility] 17:30:00 [facility] Respiratory rate 2021-12-08 17 /min [facility] 17:30:00 [facility] Oxygen saturation 2021-12-08 96 /min [facility] in Arterial blood 17:30:00 Hospital by Pulse oximetry Body height 2021-12-08 162.6 cm [facility] 14:06:00 [facility] Body weight 2021-12-08 56.7 kg [facility] 14:06:[facility] BMI 2021-12-08 21.46 kg/m2 [facility] 14:[facility] Procedures Procedure Date / Time Performing Clinician Source Performed BMI IS DOCUMENTED WITHIN 2021-12-19 00:00:00 Klever Miner 2.1 6.840.1.606820.4 NORMAL PARAMETERS AND NO .2 FOLLOW-UP PLAN IS REQUIRED (G8420) PATIENT SCREENED FOR 2021-12-19 00:00:00 Klever Miner 2.16.84 0.1.063443.4 TOBACCO USE AND .2 IDENTIFIED A TOBACCO NON-USER (G9903) SCREENING FOR TOBACCO USE 2021-12-19 00:00:00 Klever Miner 2. 16.840.1.963181.4 (4004F) .2 CBC WITH PLATELET AND 2021-12-08 16:24:00 Yusuf Dc [facility] DIFFERENTIAL CT HEAD WO CONTRAST 2021-12-08 15:38:10 Yusuf Dc [facility] XR CHEST 1 VW PORTABLE 2021-12-08 15:37:46 Yusuf Dc [facility] ECG ED PRELIMINARY 2021-12-08 15:00:29 Yusuf Dc [facility] INTERPRETATION COMPREHENSIVE METABOLIC 2021-12-08 14:51:00 Yusuf Dc [facility] PANEL TROPONIN T 2021-12-08 14:51:00 Yusuf Dc spital HCG QUALITATIVE, SERUM 2021-12-08 14:51:00 Yusuf Dc [facility] SCREEN ESTIMATED GFR 2021-12-08 14:51:00 Yusuf Dc spital ECG 12-LEAD 2021-12-08 14:44:31 Yusuf Dc spital Annual Eye Exam - FOR Jennie Pina 2.16.84 0.1.173500.4 NON-DIABETICS ONLY .2 Appendectomy Jennie Pina 2.16.840.1.11 3883.4 .2 Delivery Jennie Pina 2.16.840.1. 704228.4 .2 Patient received annual Jennie Pina 2.16. 840.1.082348.4 dental check-up .2 Plan of Care Planned Activity Planned Date Details Comments Source Future Scheduled 2022-01-24 HEPATITIS B VACCINES Met [facility] Test 21:26:31 (1 of 3 - 3-dose series) [code = HEPATITIS B VACCINES (1 of 3 - 3-dose series)] Future Scheduled 2022-01-24 COVID-19 VACCINE (#1) [facility] Test 21:26:31 [code = COVID-19 VACCINE (#1)] Future Scheduled 2022-01-24 Hepatitis C screening [facility] Test 21::31 (procedure) [code = 771929551] Future Scheduled 2022-01-24 Screening for [facility] Test 21::31 malignant neoplasm of cervix (procedure) [code = 875848517] Future Scheduled 2022-01-24 INFLUENZA VACCINE Method [facility] Test ::31 [code = INFLUENZA VACCINE] Diagnostic Test 2021-12-19 C-REACTIVE PROTEIN Pending 10:50:25 (46618) [code = 93469] Diagnostic Test 2021-12-19 C-REACTIVE PROTEIN Pending 10:50:25 (87338) [code = 97134] Diagnostic Test 2021-12-19 SED RATE ERYTHROCYTE Pending 10:50:19 (47539) [code = 60092] Diagnostic Test 2021-12-19 SED RATE ERYTHROCYTE Pending 10:50:19 (44541) [code = 50000] Diagnostic Test 2021-12-19 MONOSPOT SCREEN Pending 10:49:43 (68311) [code = 79111] Diagnostic Test 2021-12-19 MONOSPOT SCREEN Pending 10:49:43 (95920) [code = 80036] Diagnostic Test 2021-12-19 TSH (THYROID Pending 10:49:36 STIMULATING HORMONE) (03483) [code = 85915] Future Scheduled 2021-12-14 HEPATITIS B VACCINES Met [facility] Test 19:27:04 (1 of 3 - 3-dose series) [code = HEPATITIS B VACCINES (1 of 3 - 3-dose series)] Future Scheduled 2021-12-14 COVID-19 VACCINE (#1) [facility] Test 19:27:04 [code = COVID-19 VACCINE (#1)] Future Scheduled 2021-12-14 [facility] Test 19:27:04 (procedure) [code = 980142513] Future Scheduled 2021-12-14 Screening for [facility] Test 19:27:04 malignant neoplasm of cervix (procedure) [code = 061985068] Future Scheduled 2021-12-14 [facility]FLU[facility]ZA [facility]ACCINE [facility] Test 19:27:04 [code = INFLUENZA VACCINE] Encounters Start End Encounter Admission Attending Care Care Encounter Source Date/Time Date/Time Type Type Clinicians Facility Department ID 2021-12-17 Outpatient Vesper, [facility] [id number] [place] 17:22:22 Critical access hospital [id number] [facility] 2021-12-15 Outpatient Vesper, [facility] [id number] [place] 10:10:04 Critical access hospital [id number] [facility] 2021-12-14 Outpatient Vesper, [facility] [id number] [place] 14:42:40 Critical access hospital [id number] [facility] 2019-03-05 Inpatient [facility] JAYDEN [id number] [facility] 14:39:00 [id number] [facility] 2021-12-19 2021-12-20 Office 0 Alberto [id number] 10:00:00 11:03:47 Visit 06 2021-12-19 2021-12-19 Outpatient Vesper, [facility] [id number] [place] 10:15:00 10:15:00 Critical access hospital [id number] [facility] 2021-12-18 2021-12-19 Emergency E ANDREW, [facility] [id number] [facility]W 20:53:00 05:50:00 ERASTO 2021-12-14 2021-12-15 Emergency E YOHANA, [facility] [id number] MHTW 19:46:00 02:45:00 LEONEL 2021-12-08 2021-12-08 Emergency Dc, 1.2.840.1 [id number] [facility]i 09:07:00 12:44:00 Yusuf Cordero [address] 3.430.2.7 Hospit a .3.895866 l .8 2021-12-08 2021-12-08 Travel 1.2.840.1 1.2.255.364 [id number] [facility] 00:00:00 00:00:[address] 3.430.2.7 0.2.7.3.698 Ho spita .3.175640 084.8 l .8 2018-06-09 2018-06-09 Emergency E MHTW TW [id number] MHTW 13:55:00 13:55:00 Results Test Description Test Time Test Comments Results Result Comments Source TSH (THYROID STIMULATING HORMONE) (58286) 2021-12-19 00:00:0 0 Test Item Value Reference Range Interpretation Comme nts TSH (test code = 3016-3) 2.24 {mIU/L} N Ref erence Range > or = 20 Years 0.40-4.50 Range s First trimester 0.26-2.66 Second trimeste r 0.55-2.73 Third trimester 0.43-2.91Test P erformed at:[facility] [id number] [place] [address] ROHIT WHITNEY MD ECG 12 [id number] 20:07:15 Test Item Value Reference Range Interpretation Comments Ventricular rate (test code = 253) Atrial rate (test code = 255) WY interval (test code = 266) QRSD interval (test code = 260) QT interval (test code = 264) QTC interval (test code = 265) P axis 1 (test code = 267) QRS axis 1 (test code = 268) T wave axis (test code = 270) EKG impression (test Normal sinus code = 273) rhythm-Normal ECG-No previous ECGs available-Electronical ly Signed By Fantasma PEREZ, John [facility] ([id number]) on 12/13/2021 3:07:08 PM [facility] 12 [id number] 20:07:15 Test Item Value Reference Range Interpretation Comments Ventricular rate (test code = 253) Atrial rate (test code = 255) WY interval (test code = 266) QRSD interval (test code = 260) QT interval (test code = 264) QTC interval (test code = 265) P axis 1 (test code = 267) QRS axis 1 (test code = 268) T wave axis (test code = 270) EKG impression (test Normal sinus code = 273) rhythm-Normal ECG-No previous ECGs available-Electronical ly Signed By John Meek MD ([id number]) on 12/13/2021 3:07:08 [facility] [id number] 15:42:00 Test Item Value Reference Range Interpretation [...] <50 MG 1 NORMAL = LIPINDEX) Index/DL [id number] 15:42:00 Test Item Value Reference Range Interpretation Comments LIPASE (test code = LIP) 42 Unit/L 114-286 L HEPATIC FUNCTION [id number] 15:34:00 Test Item Value Reference Range Interpretation [...] <50 MG 1 NORMAL = LIPINDEX) Index/DL [id number] 15:34:00 Test Item Value Reference Range Interpretation Comments LIPASE (test code = LIP) Unit/L 114-286 CBC W/O [id number] 15:19:00 Test Item Value Reference Range Interpretation [...] 9.2 fL 6.8-11.2 N MPV) CHEMISTRY 7 [id number] 15:15:00 Test Item Value Reference Range Interpretation [...] POC (test code = GFRBED) CHEMISTRY 7 [id number] 15:15:00 Test Item Value Reference Range Interpretation [...] = GFRBED) UA RFLX MICR CULT IF [id number] 15:13:00 Test Item Value Reference Range Interpretation [...] Criteria Indication for culture: ABD PAINUR HCG [id number] 15:13:00 Test Item Value Reference Range Interpretation Comments UR HCG QUAL (test code = HCGQLU) NEG Indication for culture: ABD PAINUA RFLX MICR CULT IF [id number] 15:13:00 Test Item Value Reference Range Interpretation [...] Criteria Indication for culture: ABD PAINUR HCG [id number] 15:13:00 Test Item Value Reference Range Interpretation Comments UR HCG QUAL (test NEGATIVE NEG Very dilut e urines with a code = HCGQLU) low specific gravity may notcontain repr esentative levels of hCG. Indication for culture: ABD PAIN
[2022-02-08] MEDS ORDERED: ONDANSETRON 4 MG/2 ML VIAL ONE (00:16)
[2022-02-08] MEDS ORDERED: NA CHLORIDE 0.9% 1,000 ML ONE (00:16)
[2022-02-08] MEDS ORDERED: MEPERIDINE HCL 25 MG/ML SYR ONE (00:18)
[2022-02-08 00:45] LABS: Urine Blood Negative (Negative); Urine Glucose Negative (Negative); Urine Protein Negative (Negative); Urine Specific Gravity 1.025 (1.005-1.030)
[2022-02-08 00:51] LABS: Urine Specific Gravity/Preg 1.025 (1.005-1.030)
[2022-02-08 00:53] LABS: Absolute Lymphocytes (CBC) 1.8 K/uL (0.7-4.9); Hematocrit 41.7 % (36.0-45.0); Lymphocytes % 20.8 % (15.3-44.8); MCV 92.5 fL (80-100); MPV 7.7 fL (7.6-11.3); RBC Red Blood Cell Count 4.51 M/uL (3.86-4.86)
[2022-02-08 01:03] LABS: Albumin 4.1 g/dL (3.4-5.0); Bilirubin Total 0.4 mg/dL (0.2-1.0); Potassium 3.9 mmol/L (3.5-5.1); Protein, Total 7.7 g/dL (6.4-8.2)
[2022-02-08] MEDS ORDERED: NA CHLORIDE 0.9% 500 ML ONE (01:18)
--- NOTE | 2022-02-08 04:39 | ER ---
Nurse's Notes [facility] Name: Betzaida Ceja Age: 36 yrs Sex: Female : 1985 Arrival Date: 02/07/2022 Time: 22:12 Bed 19 Private MD: Diagnosis: Headache;Upper abdominal pain, unspecified Presentation: 02/07 22:36 Chief complaint: Patient states: she noticed swelling to her forehead wrapping around bb her head since approx 1500 today then she started having abdominal pain and vomiting. Coronavirus screen: At this time, the client does not indicate any symptoms associated with coronavirus-19. Ebola Screen: No symptoms or risks identified at this time. Initial Sepsis Screen: Does the patient meet any 2 criteria? No. Patient's initial sepsis screen is negative. Does the patient have a suspected source of infection? No. Patient's initial sepsis screen is negative. Risk Assessment: Do you want to hurt yourself or someone else? Patient reports no desire to harm self or others. Onset of symptoms was February 07, 2022. 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 - Social history:: Smoking status: Patient denies any tobacco usage or history of. Screenin/15 00:30 [facility] ED Fall Risk Assessment (Adult) Score/Fall Risk Level 0 - 2 = Low Risk. Rachel as6 Dumpty Scale Fall Assessment Tool (age< 18yrs) Fall Risk Score/ Level Low Fall Risk: </= 11 points Oriented to surroundings, Maintained a safe environment: Age specific bed with railing, Bed in low position\T\ wheels locked, Assess need for siderail use, Locks on, Rm \T\ paths clutter \T\ obstacle free, Proper lighting, Call light, personal item w/in reach, Alarms as needed, Educated pt \T\ family on fall prevention, incl. call for assistance when getting out of bed. Abuse screen: Denies threats or abuse. Denies injuries from another. Nutritional screening: No deficits noted. Tuberculosis screening: No symptoms or risk factors identified. Fall Risk Total Mcadams Fall Scale indicates No Risk (0-24 pts). Assessment: 02/07 23:58 General: Appears uncomfortable, slender, Behavior is cooperative. Pain: Complains of as6 pain in right upper quadrant Quality of pain is described as sharp, shooting, stabbing. Neuro: Level of Consciousness is awake, alert, obeys commands, Oriented to person, place, time, situation, Reports headache. Cardiovascular: Capillary refill < 3 seconds Patient's skin is warm and dry. Respiratory: Respiratory effort is even, unlabored. GI: Reports upper abdominal pain, nausea. Vital Signs: 22:36 BP 137 / 96 RA Sitting; Pulse 89; Resp 16 S; Temp 98.8(O); Pulse Ox 100% on R/A; Weight bb 59.42 kg (R); Height 5 ft. 4 in. (162.56 cm) (R); Pain 6/10; 02/08 00:11 BP 130 / 98; Pulse 88; Resp 18 S; Pulse Ox 97% on R/A; as6 01:14 BP 133 / 95; Pulse 90; Resp 16 S; Pulse Ox 99% on R/A; as6 02:30 BP 120 / 89; Pulse 86; Resp 18 S; Pulse Ox 99% on R/A; as6 03:30 BP 105 / 76; Pulse 96; Resp 16 S; Pulse Ox 100% on R/A; as6 04:51 BP 129 / 97; Pulse 86; Resp 15 S; Pulse Ox 100% on R/A; as6 05:44 BP 105 / 76; Pulse 96; Resp 18 S; Pulse Ox 100% on R/A; as6 02/07 22:36 Body Mass Index 22.49 (59.42 kg, 162.56 cm) bb ED Course: 02/07 22:12 Patient arrived in ED. jj6 22:38 Triage completed. bb 22:38 Arm band placed on Patient placed in an exam room, on a stretcher, on pulse oximetry. bb 22:51 Agustin Santos MD is Attending Physician. kdr 23:57 Ronnie Mota RN is Primary Nurse. as6 02/08 00:25 Inserted saline lock: 20 gauge in right antecubital area, using aseptic technique. as6 Blood collected. 00:29 CBC with Diff Sent. as6 00:29 CMP Sent. as6 00:29 Lipase Sent. as6 00:31 Placed in gown. Bed in low position. Call light in reach. Side rails up X 1. as6 01:13 CT Abd/Pelvis - IV Contrast Only In Process Unspecified. EDMS 04:01 CT Head Brain wo Cont In Process Unspecified. EDMS 04:52 No provider procedures requiring assistance completed. as6 05:44 IV discontinued, intact, bleeding controlled, No redness/swelling at site. Pressure as6 dressing applied. Administered Medications: 00:29 Drug: NS 0.9% 1000 ml Route: IV; Rate: 1 bolus; Site: right antecubital; as6 04:52 Follow up: Response: No adverse reaction; IV Status: Completed infusion; IV Intake: as6 1000ml 00:29 Drug: Zofran (Ondansetron) 4 mg Route: IVP; Site: right antecubital; as6 04:52 Follow up: Response: No adverse reaction as6 00:30 Drug: Demerol (meperidine) 12.5 mg Route: IVP; Site: right antecubital; as6 04:52 Follow up: Response: No adverse reaction as6 01:18 Drug: NS 0.9% 500 ml Route: IV; Rate: bolus; Site: right antecubital; as6 04:52 Follow up: Response: No adverse reaction; IV Status: Completed infusion; IV Intake: as6 500ml Medication: 00:31 VIS not applicable for this client. as6 Intake: 04:52 IV: 500ml; Total: 500ml. as6 04:52 IV: 1000ml; Total: 1500ml. as6 Outcome: 04:38 Discharge ordered by . kdr 04:52 Condition: stable as6 05:44 Discharged to home ambulatory. as6 05:44 Discharge instructions given to patient, Instructed on discharge instructions, follow up and referral plans. Demonstrated understanding of instructions, follow-up care. 05:44 Patient left the ED. as6 Signatures: Dispatcher [employer] EDMS Agustin Santos MD MD kdr Ballard, Brenda, RN RN Lorraine Reagan6 Ronnie Mota, RN RN as6
--- NOTE | 2022-02-08 04:39 | EDPHYS ---
Physician Documentation [facility] Name: Betzaida Ceja Age: 36 yrs Sex: Female : 1985 Arrival Date: 02/07/2022 Time: 22:12 Bed 19 Private MD: ED Physician Agustin Santos HPI: 02/08 01:44 This 36 yrs old Female presents to ER via Ambulatory with complaints of Facial kdr Swelling, Headache, Nausea, Pain. 01:45 The patient has multiple complaints including swelling and pain in her right upper kdr quadrant of her abdomen, subjective swelling to her face and head, and vomiting. These became worse today although some of the symptoms have been intermittent for a few days. Onset: The symptoms/episode began/occurred suddenly, just prior to arrival, 2 week(s) ago. Severity of symptoms: At their worst the symptoms were mild moderate just prior to arrival, today, in the emergency department the symptoms have improved mildly. The patient has not experienced similar symptoms in the past. The patient has not recently seen a physician. 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 - Social history:: Smoking status: Patient denies any tobacco usage or history of. Vital Signs: 22:36 BP 137 / 96 RA Sitting; Pulse 89; Resp 16 S; Temp 98.8(O); Pulse Ox 100% on R/A; Weight bb 59.42 kg (R); Height 5 ft. 4 in. (162.56 cm) (R); Pain 6/10; 02/08 00:11 BP 130 / 98; Pulse 88; Resp 18 S; Pulse Ox 97% on R/A; as6 01:14 BP 133 / 95; Pulse 90; Resp 16 S; Pulse Ox 99% on R/A; as6 02:30 BP 120 / 89; Pulse 86; Resp 18 S; Pulse Ox 99% on R/A; as6 03:30 BP 105 / 76; Pulse 96; Resp 16 S; Pulse Ox 100% on R/A; as6 04:51 BP 129 / 97; Pulse 86; Resp 15 S; Pulse Ox 100% on R/A; as6 05:44 BP 105 / 76; Pulse 96; Resp 18 S; Pulse Ox 100% on R/A; as6 02/07 22:36 Body Mass Index 22.49 (59.42 kg, 162.56 cm) bb MDM: 03:29 Patient medically screened. kdr 02/08 00:04 Order name: CBC with Diff; Complete Time: 01:07 kdr 02/08 00:04 Order name: CMP; Complete Time: 01:07 kdr 02/08 00:04 Order name: Lipase; Complete Time: 01:07 kdr 02/08 00:45 Order name: Urine Dipstick-Ancillary; Complete Time: 01:07 EDMS 02/08 00:45 Order name: Urine --Ancillary (enter results); Complete Time: 01:07 wm 02/08 01:22 Order name: CREATININE WHOLE BLOOD; Complete Time: 03:21 EDMS 02/08 00:04 Order name: CT Abd/Pelvis - IV Contrast Only kdr 02/08 00:04 Order name: IV Saline Lock; Complete Time: 00:29 kdr 02/08 00:04 Order name: Labs collected and sent; Complete Time: 00:29 kdr 02/08 03:35 Order name: CT Head Brain wo Cont kdr 02/08 00:04 Order name: Urine Dipstick-Ancillary (obtain specimen); Complete Time: 00:44 kdr 02/08 00:04 Order name: Urine Test (obtain specimen); Complete Time: 00:44 kdr Administered Medications: 00:29 Drug: NS 0.9% 1000 ml Route: IV; Rate: 1 bolus; Site: right antecubital; as6 04:52 Follow up: Response: No adverse reaction; IV Status: Completed infusion; IV Intake: as6 1000ml 00:29 Drug: Zofran (Ondansetron) 4 mg Route: IVP; Site: right antecubital; as6 04:52 Follow up: Response: No adverse reaction as6 00:30 Drug: Demerol (meperidine) 12.5 mg Route: IVP; Site: right antecubital; as6 04:52 Follow up: Response: No adverse reaction as6 01:18 Drug: NS 0.9% 500 ml Route: IV; Rate: bolus; Site: right antecubital; as6 04:52 Follow up: Response: No adverse reaction; IV Status: Completed infusion; IV Intake: as6 500ml Disposition Summary: 02/08/22 04:38 Discharge Ordered Location: Home kdr Problem: new kdr Symptoms: have improved kdr Condition: Stable kdr Diagnosis - Headache kdr - Upper abdominal pain, unspecified kdr Followup: kdr - With: Private Physician - When: 2 - 3 days - Reason: If symptoms return, Further diagnostic work-up, Recheck today's complaints, Continuance of care, Re-evaluation by your physician Discharge Instructions: - Discharge Summary Sheet kdr - General Headache Without Cause kdr - Abdominal Pain, Adult, [id number] kdr Forms: - Medication Reconciliation Form kdr - Thank You Letter kdr Signatures: Dispatcher [employer] Agustin Monroy MD MD kdr Ayla Wilkinson, RN RN bb Ronnie Mota RN RN as6
[2022-02-08 06:07] VITALS: TEMP 98.8
[2022-02-08 06:12] VITALS: O2SAT 100
[2022-02-08 06:14] VITALS: BP 105/76
--- NOTE | 2022-02-08 11:09 | RAD REPORT ---
EXAM DESCRIPTION: CT - Abdomen Pelvis W Contrast - 02/08/2022 6:34 am CLINICAL HISTORY: The patient is 36 years old and is Female; Abdominal pain, acute, nonlocalized TECHNIQUE: Axial computed tomography images of the abdomen and pelvis with intravenous contrast. S agittal and coronal reformatted images were created and reviewed. This CT exam was performed using one or more of the following dose reduction techniques: automated exposure control, adjustment of t he mA and/or kV according to patient size, and/or use of iterative reconstruction technique. COMPARISON: 01/31/2022 CT abdomen pelvis with contrast FINDINGS: LUNG BASES: Unremarkable. No mass. No consolidation. ABDOMEN: LIVER: Suspected focal hepatic steatosis along the falciform ligament. Surgical clips redemonstrat ed lesser curvature of stomach and in the left lower quadrant near the left external and internal max ac arterial bifurcation. GALLBLADDER AND BILE DUCTS: Unremarkable. No calcified stones. No ductal dilation. PANCREAS: Unremarkable. No mass. No ductal dilation. SPLEEN: Unremarkable. No splenomegaly. ADRENALS: Unremarkable. No mass. KIDNEYS AND URETERS: Unremarkable. No solid mass. No hydronephrosis. STOMACH AND BOWEL: Mild generalized fecalization of the contents of the small bowel, suggesting de creased bowel motility, similar to reference exam. No obstruction. No mucosal thickening. PELVIS: APPENDIX: No findings to suggest acute appendicitis. BLADDER: Unremarkable. No mass. REPRODUCTIVE: Unremarkable as visualized. ABDOMEN and PELVIS: INTRAPERITONEAL SPACE: Unremarkable. No free air. No significant fluid collection. BONES/JOINTS: Benign enostoses demonstrated in the bilateral femoral heads and right acetabulum. No acute fracture. No dislocation. SOFT TISSUES: Unremarkable. VASCULATURE: Unremarkable. No abdominal aortic aneurysm. LYMPH NODES: Unremarkable. No enlarged lymph nodes. OTHER FINDINGS: No findings to suggest obstruction. IMPRESSION: 1. Mild generalized fecalization of the contents of the small bowel, suggesting decrea sed bowel motility, similar to reference exam. No findings to suggest obstruction. 2. Otherwise, no acute abnormality of the abdomen or pelvis. Electronically signed by: Julián Vidal MD 02/08/2022 1:32 AM SPORT PSYCHOLOGIST Due to temporary technical issues with the PACS/Fluency reporting system, reports are being signed by the in house radiologists without review as a courtesy to insure prompt reporting. The interpreting radiologist is fully responsible for the content of the report.
--- NOTE | 2022-02-08 11:13 | RAD REPORT ---
EXAM DESCRIPTION: CT - Head Brain Wo Cont - 02/08/2022 6:36 am CLINICAL HISTORY: The patient is 36 years old and is Female; Headache, tension-type TECHNIQUE: Axial computed tomography images of the head/brain without intravenous contrast. Sagitt al and coronal reformatted images were created and reviewed. This CT exam was performed using one o r more of the following dose reduction techniques: automated exposure control, adjustment of the mA and/or kV according to patient size, and/or use of iterative reconstruction technique. COMPARISON: No relevant prior studies available. FINDINGS: Brain: Unremarkable. No hemorrhage. No significant white matter disease. No edema. Ventricles: Unremarkable. No ventriculomegaly. Bones/joints: Unremarkable. No acute skull fracture. Soft tissues: Unremarkable. Sinuses: Unremarkable as visualized. No acute sinusitis. Mastoid air cells: No significant mastoid fluid. IMPRESSION: No acute intracranial findings. No hemorrhage. Electronically signed by: Tiffany Strauss MD 02/08/2022 4:10 AM OCEAN LIFEGUARD Due to temporary technical issues with the PACS/Fluency reporting system, reports are being signed by the in house radiologists without review as a courtesy to insure prompt reporting. The interpreting radiologist is fully responsible for the content of the report.
== END 2022-02-08 05:44 | disposition home or self-care (01) ==
LOC: ER 22:08
DX: R51.9 Headache, unspecified (principal); R10.11 Right upper quadrant pain; Z88.5 Allergy status to narcotic agent
CPT/HCPCS: 36415; 70450; 74177; 80053; 81003; 81025; 82565; 83690; 85025; J2175; J2405; J7030; J7040; Q9967

== ENCOUNTER 2022-03-02 23:30 | Emergency (ER) | payer SELFPAY ==
--- OUTSIDE RECORDS SUMMARY | 2022-03-02 23:33 | XMS REPORT | Continuity of Care Document ---
:1985 Author Organization [facility] t Address [address] [place] [place] [address] Care Team Providers Name Role Phone Asked, No Pcp Primary Care Physician Unavailable Alberto Mcdaniel [facility] Attending Clinician Unavailable ERASTO MORALES Attending Clinician Unavailable LEONEL MULLER Attending Clinician Unavailable Yusuf Dc MD Attending Clinician Physician, No Primary or Family Admitting Clinician UnavailJennie Berg MA Unavailable Unavailable Klever Miner PA-C Unavailable Payers Payer Name Policy Type Policy Number Effective Date Expiration Date S ourreyna [employer] [place] D [id number] 2021 00:00:00 Women Problems Condition Condition Condition Status Onset Resolution Last Treating Co mments Source Name Details Category Date Date Treatment Clinician Date BMI BMI 83967-8 Active 2021-12-19 Silvana 2 .16.84 20.0-20.9, 20.0-20.9, 10:35:10 Jennie 0.1.113 adult adult 883.4.2 (Renamed (Renamed from Body from Body mass index mass index (BMI) of (BMI) of 20.0 to 20.0 to 20.9 in 20.9 in adult) adult) (Z68.20) (V85.1)RAMIRO Quiros [employer]iveries Deliveries 17271-3 Active 2021-12-19 Michael-Yado, 2.16. (Parity) (Parity)Cr 10:34:48 Jennie 0 .1.113 Anna 883.4.2 RAMIRO [place] ments: 3. Myalgia Myalgia 05303-9 Active 2021-12-20 Miner, 2.1 6.84 (M79.10) 11:03:27 Klever 0.1.11 3 (729.1)Pro 883.4. 2 gnosis: PE is benign- patient has been to ER x 3 with normal work up there. Will check mono for her fatigue/il lness. CT pelvis is WNL as well. Discussed with patient checking labs for autoimmune d/o as well. Encouraged romeo landeros. She complains of fatigue and inability to sleep. WIll send in a few days of atarax to help with her anxiety and insomnia. S/E discussed. as of LISA Villavicencio Pregnancie Pregnancie 78898-3 Active 2021-12-19 Michael-Yado, 2.1684 s s 10:34:44 Jennie 0.1.113 () ()C 883 .4.2 RAMIRO Edge ments: 3. Quit using Quit using 00858-5 Active 2021-12-19 Michael-Yado, 2.16 tobacco tobacco 10:35:01 Jennie 0.1.1 13 (Renamed (Renamed 883.4. 2 from Quit from Quit using using tobacco in tobacco in remote remote past) past) (Z91.89) (V15.89)RAMIRO [place] [address]-2 Active 2021-12-20 Miner, 2.16 alcoholism alcoholism 10:56:48 Klever 0.1.113 (F10.21) 883.4.2 (V11.3)LISA [place] 44[address]-3 Active 2021-12-20 Kristofer, 2. depression depression 10:56:32 Klever 0.1.113 (Z86.59) 883.4.2 (V11.8)LISA [place] [address]-4 Active 2021-12-20 Kristofer, 2. 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 lesion of lesion [...] l s to drug morphine DA Active [facility] [facility] Morphine Allergy Active 04.12.83 Derivati 0.1.113 ves 883.4.2 Social History Social Habit Start Date Stop Date Quantity Comments Source Alcohol Use: Non Drinker / No 2.16.8 40.1.800142 Alcohol Use. .4.2 Drug Use: No drug use. 2..840.1.1 29539 .4.2 Tobacco use: Never smoker. 2.840. 1.420173 .4.2 Tobacco/Smoke None. 2.16.840.1. 818909 Exposure: .4.2 Vaping/JUULing: Never smoker. 2.16.8 40.1.723734 .4.2 Sex Assigned At [birth year] [facility] 00:00:00 [facility]:00:00 Hospital Smoking Status Start Date Stop Date Source Never smoked tobacco Tobacco smoking consumption unknown [facility] Medications Ordered Filled Start Stop [...] 6 (six) hours for 10 days. HYDROcodone 2021-02 1{tbl} Q6H Take 1 Methodi -acetaminop 0-14 10-[address] hen ([employer]) 00:00: 04:59 mouth Hosp quoc 5-325 mg 00 :00 every 6 l per tablet (six) hours as needed for moderate pain for up to 7 days .acute pain. Max Daily Amount: 4 tablets HYDROcodone 2021-02 1{tbl} Q6H Take 1 Methodi -acetaminop 0-14 10-[address] [facility] ([employer]) 00:00: 04:59 mouth Hosp quoc 5-325 mg 00 :00 every 6 l per tablet (six) hours as needed for moderate pain for up to 7 days .acute pain. Max Daily Amount: 4 tablets HYDROcodone 2021-02 1{tbl} Q6H Take 1 Methodi -acetaminop 0-14 10-[address] hen ([employer]) 00:00: 04:59 mouth Hosp quoc 5-325 mg 00 :00 every 6 l per tablet (six) hours as needed for moderate pain for up to 7 days .acute pain. Max Daily Amount: 4 tablets Vital Signs Vital Name Observation Time Observation Value Comments Source Temperature 2021-12-19 98.7 [degF] Method: Oral 2.16.840.1.1138 10:29:13 83.4.2 Pulse 2021-12-19 86 /min Pattern: Regular 2.16.840.1. 1138 10:29:13 83.4.2 Respiration Rate 2021-12-19 20 /min Pattern: 2..840.1. 1138 10:29:13 Unlabored 83.4.2 BP Systolic 2021-12-19 [...] 10:29:13 83.4.2 Systolic blood 2021-12-08 142 mm[Hg] [facility] pressure 17:30:00 Hospital Diastolic blood 2021-12-08 89 mm[Hg] [facility] pressure 17:30:00 Hospital Heart rate 2021-12-08 56 /min [facility] 17:30:00 Hospital Body temperature 2021-12-08 37 Pattie [facility] 17:30:00 Hospital Respiratory rate 2021-12-08 17 /min [facility] 17:30:00 Hospital Oxygen saturation 2021-12-08 96 /min [facility] in Arterial blood 17:30:00 Hospital by Pulse oximetry Body height 2021-12-08 162.6 cm [facility] 14:06:00 Hospital Body weight 2021-12-08 56.7 kg [facility] 14:06:00 Hospital BMI 2021-12-08 21.46 kg/m2 [facility] 14:06:00 Hospital Procedures Procedure Date / Time Performing Clinician Source Performed BMI IS DOCUMENTED WITHIN 2021-12-19 00:00:00 Klever Miner 2.1 6.840.1.517130.4 NORMAL PARAMETERS AND NO .2 FOLLOW-UP PLAN IS REQUIRED (G8420) PATIENT SCREENED FOR 2021-12-19 00:00:00 Klever Miner 2.16.84 0.1.972088.4 TOBACCO USE AND .2 IDENTIFIED A TOBACCO NON-USER (G9903) SCREENING FOR TOBACCO USE 2021-12-19 00:00:00 Klever Miner 2. 16.840.1.134218.4 (4004F) .2 CBC WITH PLATELET AND 2021-12-08 16:24:00 Yusuf Dc t Hospital DIFFERENTIAL CT HEAD WO CONTRAST 2021-12-08 [facility]:38[facility] 2021-12-08 15:37:46 Yusuf Dc [facility] ECG ED PRELIMINARY 2021-12-08 15:00:29 Yusuf Dc [facility] INTERPRETATION COMPREHENSIVE METABOLIC 2021-12-08 14:51:00 Yusuf Dc [facility] PANEL TROPONIN T 2021-12-08 14:51:[facility]AL[facility]AT[facility], SERUM 2021-12-08 14:51:00 Yusuf Dc [facility] SCREEN ESTIMATED GFR 2021-12-08 14:51:00 Yusuf Dc spital ECG 12-LEAD 2021-12-08 14:44:31 Yusuf Dc spital Annual Eye Exam - FOR Jennie Pina 2.16.84 0.1.114138.4 NON-DIABETICS ONLY .2 Appendectomy Jennie Pina 2.16.840.1.11 3883.4 .2 Delivery Jennie Pina 2.16.840.1. 169211.4 .2 Patient received annual Jennie Pina 2.16. 840.1.735545.4 dental check-up .2 Plan of Care Planned Activity Planned Date Details Comments Source Future Scheduled 2022-02-12 COVID-19 VACCINE (#1) [facility] Test 23:05:27 [code = COVID-19 VACCINE (#1)] Future Scheduled 2022-02-[address] [facility] Test 23:05:27 (procedure) [code = 180179048] Future Scheduled 2022-02-12 Screening for [facility] Test 23:05:27 malignant neoplasm of cervix (procedure) [code = 246949387] Future Scheduled 2022-02-12 INFLUENZA VACCINE Method [facility] Test 23:05:27 [code = INFLUENZA VACCINE] Future Scheduled 2022-01-24 HEPATITIS B VACCINES Met [facility] Test 21:26:31 (1 of 3 - 3-dose series) [code = HEPATITIS B VACCINES (1 of 3 - 3-dose series)] Future Scheduled 2022-01-24 COVID-19 [facility] (#[facility] Test 21:26:31 [code = COVID-19 VACCINE (#1)] Future Scheduled 2022-01-24 [facility] Test 21:26:31 (procedure) [code = 374547831] Future Scheduled 2022-01-24 Screening for [facility] Test 21:26:31 malignant neoplasm of cervix (procedure) [code = 207778315] Future Scheduled 2022-01-24 INFLUENZA VACCINE Method ist Hospital Test 21:26:31 [code = INFLUENZA VACCINE] Diagnostic Test 2021-12-19 C-REACTIVE PROTEIN Pending 10:50:25 (13828) [code = 37771] Diagnostic Test 2021-12-19 C-REACTIVE PROTEIN Pending 10:50:25 (62532) [code = 16803] Diagnostic Test 2021-12-19 SED RATE ERYTHROCYTE Pending 10:50:19 (21382) [code = 99072] Diagnostic Test 2021-12-19 SED RATE ERYTHROCYTE Pending 10:50:19 (59259) [code = 91758] Diagnostic Test 2021-12-19 MONOSPOT SCREEN Pending 10:49:43 (26907) [code = 37623] Diagnostic Test 2021-12-19 MONOSPOT SCREEN Pending 10:49:43 (35632) [code = 51568] Diagnostic Test 2021-12-19 TSH (THYROID Pending 10:49:36 STIMULATING HORMONE) (16246) [code = 02920] Future Scheduled 2021-12-14 HEPATITIS B VACCINES Met [facility] Test 19:27:04 (1 of 3 - 3-dose series) [code = HEPATITIS B VACCINES (1 of 3 - 3-dose series)] Future Scheduled 2021-12-14 COVID-19 VACCINE (#1) [facility] Test 19:27:04 [code = COVID-19 VACCINE (#1)] Future Scheduled 2021-12-14 [facility] Test 19:27:04 (procedure) [code = 094066667] Future Scheduled 2021-12-14 Screening for [facility] Test 19:27:04 malignant neoplasm of cervix (procedure) [code = 030755384] Future Scheduled 2021-12-14 INFLUENZA VACCINE Method ist Hospital Test 19:27:04 [code = INFLUENZA VACCINE] Encounters Start End Encounter Admission Attending Care Care Encounter Source Date/Time Date/Time Type Type Clinicians Facility Department ID 2021-12-17 [id number] [place] 17:22:22 [facility] [id number] [facility] 2021-12-15 Outpatient [facility] [id number] [place] 10:10:04 [facility] [id number] [facility] 2021-12-14 Outpatient Cyn[facility] [id number] [place] 14:42:40 [facility] [id number] [facility] 2019-03-05 Inpatient [facility] JAYDEN [id number] [facility] 14:39:00 [id number] [facility] 2021-12-19 2021-12-20 Office 0 [facility] [id number] 10:00:00 11:03:47 Visit 06 2021-12-19 2021-12-19 Outpatient Cyn[facility] [id number] [place] 10:15:00 10:15:00 [facility] [id number] [facility] 2021-12-18 2021-12-19 Emergency E MORALES, MHTW MHTW [id number] MHTW 20:53:00 05:50:00 ERASTO 2021-12-14 2021-12-15 Emergency E YOHANA, MHTW MHTW 7512 MHTW 19:46:00 02:45:00 LEONEL 2021-12-08 2021-12-08 Emergency Dc, 1.2.840.1 [id number] [id number] Methodi 09:07:00 12:44:00 Yusuf Cordero [address] 3.430.2.7 Hospit a .3.744296 l .8 2021-12-08 2021-12-08 Emergency Dc, 1.2.840.1 [id number] 2099 [id number] [facility] 09:07:00 12:44:00 Yusuf Cordero [address] 3.430.2.7 Hospit a .3.915245 l .8 2021-12-08 2021-12-08 Travel 1.2.840.1 1.2.980.864 0834 [id number] Methodi 00:00:00 00:00:[address] 3.430.2.7 0.2.7.3.698 Ho spita .3.975045 084.8 l .8 2021-12-08 2021-12-08 Travel 1.2.840.1 1.2.306.162 0420 [id number] Methodi 00:00:00 00:00:[address] 3.430.2.7 0.2.7.3.698 Ho spita .3.929026 084.8 l .8 2018-06-09 2018-06-09 Emergency E MHTW TW [id number] MHTW 13:55:00 13:55:00 Results Test Description Test Time Test Comments Results Result Comments Source TSH (THYROID STIMULATING HORMONE) (71356) 2021-12-19 00:00:0 0 Test Item Value Reference Range Interpretation Comme nts TSH (test code = 3016-3) 2.24 {mIU/L} N Ref erence Range > or = 20 Years 0.40-4.50 Range s First trimester 0.26-2.66 Second trimeste r 0.55-2.73 Third trimester 0.43-2.91Test P erformed at:[facility] [id number] [place] [address] ROHIT WHITNEY MD ECG 12 [id number] 20:07:15 Test Item Value Reference Range Interpretation Comments Ventricular rate (test code = 253) Atrial rate (test code = 255) PA interval (test code = 266) QRSD interval (test code = 260) QT interval (test code = 264) QTC interval (test code = 265) P axis 1 (test code = 267) QRS axis 1 (test code = 268) T wave axis (test code = 270) EKG impression (test Normal sinus code = 273) rhythm-Normal ECG-No previous ECGs available-Electronical ly Signed By Meek John PEREZ ([id number]) on 12/13/2021 3:07:08 PM [place] [address] [id number] 20:07:15 Test Item Value Reference Range Interpretation Comments Ventricular rate (test code = 253) Atrial rate (test code = 255) PA interval (test code = 266) QRSD interval (test code = 260) QT interval (test code = 264) QTC interval (test code = 265) P axis 1 (test code = 267) QRS axis 1 (test code = 268) T wave axis (test code = 270) EKG impression (test Normal sinus code = 273) rhythm-Normal ECG-No previous ECGs available-Electronical ly Signed By John eMek MD ([id number]) on 12/13/2021 3:07:08 PM [place] [address] [id number] 20:07:15 Test Item Value Reference Range Interpretation Comments Ventricular rate (test code = 253) Atrial rate (test code = 255) PA interval (test code = 266) QRSD interval [...] Meek MD ([id number]) on 12/13/2021 3:07:08 PM [facility] [id number] 15:42:00 Test Item Value Reference Range Interpretation [...] <50 MG 1 NORMAL = LIPINDEX) Index/DL [id number] 15:42:00 Test Item Value Reference Range Interpretation Comments LIPASE (test code = LIP) 42 Unit/L 114-286 L HEPATIC FUNCTION [id number] 15:34:00 Test Item Value Reference Range Interpretation [...] <50 MG 1 NORMAL = LIPINDEX) Index/DL [id number] 15:34:00 Test Item Value Reference Range Interpretation Comments LIPASE (test code = LIP) Unit/L 114-286 CBC W/O [id number] 15:19:00 Test Item Value Reference Range Interpretation [...] 9.2 fL 6.8-11.2 N MPV) CHEMISTRY 7 [id number] 15:15:00 Test Item Value Reference Range Interpretation [...] POC (test code = GFRBED) CHEMISTRY 7 [id number] 15:15:00 Test Item Value Reference Range Interpretation [...] = GFRBED) UA RFLX MICR CULT IF [id number] 15:13:00 Test Item Value Reference Range Interpretation [...] Criteria Indication for culture: ABD PAINUR HCG [id number] 15:13:00 Test Item Value Reference Range Interpretation Comments UR HCG QUAL (test code = HCGQLU) NEG Indication for culture: ABD PAINUA RFLX MICR CULT IF [id number] 15:13:00 Test Item Value Reference Range Interpretation [...] Criteria Indication for culture: ABD PAINUR HCG [id number] 15:13:00 Test Item Value Reference Range Interpretation Comments UR HCG QUAL (test NEGATIVE NEG Very dilut e urines with a code = HCGQLU) low specific gravity may notcontain repr esentative levels of hCG. Indication for culture: ABD PAIN
[2022-03-03 00:40] LABS: Urine Blood 1+ (Negative); Urine Glucose Negative (Negative); Urine Protein Negative (Negative)
[2022-03-03 01:15] LABS: Urine Bacteria <20 /HPF (<20); Urine Mucus Slight /HPF (None Seen)
--- NOTE | 2022-03-03 03:37 | ER ---
Nurse's Notes [facility] Name: Betzaida Ceja Age: 36 yrs Sex: Female : 1985 Arrival Date: 03/02/2022 Time: 23:31 Bed 20 Private MD: Diagnosis: Vaginal pain;Dysuria;Bacterial vaginosis Presentation: 03/02 23:51 Chief complaint: Patient states: Pain and blood with urination sine yesterday. Reports kb3 she was here in January and told that her rectum was partially prolapsed into her vagina. Pt reports no follow up after ER visits x2. Denies N/V/fever. Coronavirus screen: Vaccine status: Patient reports being unvaccinated. Client denies travel out of the [place] in the last 14 days. Ebola Screen: Patient negative for fever greater than or equal to 101.5 degrees Fahrenheit, and additional compatible Ebola Virus Disease symptoms Patient denies exposure to infectious person. Patient denies travel to an Ebola-affected area in the 21 days before illness onset. Initial Sepsis Screen: Does the patient meet any 2 criteria? No. Patient's initial sepsis screen is negative. Does the patient have a suspected source of infection? No. Patient's initial sepsis screen is negative. Risk Assessment: Do you want to hurt yourself or someone else? Patient reports no desire to harm self or others. Onset of symptoms was March 01, 2022. 23:51 Method Of Arrival: Ambulatory kb3 23:51 Acuity: DAPHNEY 3 kb3 Triage Assessment: 23:53 General: Appears in no apparent distress. Behavior is calm, cooperative. Pain: kb3 Complains of pain in pelvis. 23:53 : Reports burning with urination, pain vaginal bleeding that is. 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 Last tetanus immunization: up to date. - Social history:: Smoking status: Patient denies any tobacco usage or history of. Screenin:59 [facility] ED Fall Risk Assessment (Adult) History of falling in the last 3 months, fu including since admission No falls in past 3 months (0 pts). Abuse screen: Denies threats or abuse. Nutritional screening: No deficits noted. Tuberculosis screening: No symptoms or risk factors identified. Assessment: 03/03 00:01 General: Appears in no apparent distress. Behavior is calm, cooperative, appropriate fu for age. Pain: Complains of pain in pelvis Pain radiates to abdomen Pain currently is 7 out of 10 on a pain scale. Pain began 1 day ago. 00:09 Neuro: Level of Consciousness is awake, alert, obeys commands, Oriented to person, fu place, time, situation, Moves all extremities. Gait is steady, Speech is normal, Facial symmetry appears normal. Respiratory: Respiratory effort is even, unlabored, Respiratory pattern is regular. GI: Patient currently denies diarrhea, nausea, vomiting. : Reports burning with urination, vaginal bleeding that is. Derm: Skin is intact. 01:40 Reassessment: Patient and/or family updated on plan of care and expected duration. Pain fu level reassessed. Patient is alert, oriented x 3, equal unlabored respirations, skin warm/dry/pink. 01:45 Reassessment: MD in the room talking with patient. fu 02:30 Reassessment: Patient and/or family updated on plan of care and expected duration. Pain fu level reassessed. Patient is alert, oriented x 3, equal unlabored respirations, skin warm/dry/pink. Vital Signs: 03/02 23:51 BP 149 / 105; Pulse 111; Resp 20; Temp 98.3; Pulse Ox 99% ; Weight 46.27 kg; Height 5 kb3 ft. 4 in. (162.56 cm); Pain 8/10; 03/03 01:30 BP 128 / 100; Pulse 97; Resp 16; Pulse Ox 100% on R/A; fu 02:34 BP 133 / 99; Pulse 98; Resp 18; Pulse Ox 100% on R/A; fu 03/02 23:51 Body Mass Index 17.51 (46.27 kg, 162.56 cm) kb3 ED Course: 03/02 23:31 Patient arrived in ED. jj6 23:53 Triage completed. kb3 23:53 Arm band placed on right wrist. kb3 23:58 Timur Ramos, RN is Primary Nurse. fu 23:59 Tiffany Nova MD is Attending Physician. sd2 03/03 00:15 Assist provider with pelvic exam: Set up pelvic tray. Performed by Tiffany jaime Specimens sent to lab. Patient tolerated well. 00:38 Urine Microscopic Only Sent. fu 00:38 Wet Prep Sent. fu 00:38 GC (GONORR/CHLAMYDIA) Probe Sent. fu 01:45 Patient has correct armband on for positive identification. Placed in gown. Bed in low fu position. Call light in reach. Side rails up X 1. Pulse ox on. NIBP on. Warm blanket given. 03:07 US Pelvis Complete In Process Unspecified. EDMS 03:57 Patient did not have IV access during this emergency room visit. fu Administered Medications: No medications were administered Medication: 03:00 VIS not applicable for this client. fu Outcome: 03:36 Discharge ordered by . sd2 03:56 Discharged to home ambulatory. fu 03:56 Condition: stable 03:56 Discharge instructions given to patient, Instructed on discharge instructions, follow up and referral plans. Demonstrated understanding of instructions, follow-up care, Prescriptions given X 1. 03:58 Patient left the ED. fu Signatures: Dispatcher [employer] EDMS Ayla Wilkinson RN CARLOS bb Timur Ramos, Lorraine Park RN jj6 Tiffany Nova MD MD sd2 María Cormier RN RN kb3
--- NOTE | 2022-03-03 03:37 | EDPHYS ---
Physician Documentation [facility] Name: Betzaida Ceja Age: 36 yrs Sex: Female : 1985 Arrival Date: 03/02/2022 Time: 23:31 Bed 20 Private MD: ED Physician Tifafny Nova HPI: 03/03 00:34 This 36 yrs old Female presents to ER via Ambulatory with complaints of Possible rectal sd2 prolapse. 00:34 36-year-old female presents with a chief complaint of vaginal pain and dysuria. She sd2 reports that she believes the area might be prolapsed due to seeing something bulging down there and having difficulty urinating and burning with urination. She states she also noticed some foul-smelling discharge from the area. She states she is sexually active but has no concern for sexually transmitted infections at this time. The patient also relayed to the triage nurse that she was told the last 2 time she was here, that she had a partial rectal prolapse. However, upon review of the patient's records, she did have CT scans that were performed both times as did not show any evidence of prolapse. She was diagnosed at 1 of those visits with some hemorrhoids. There was some concern in the previous notes that the patient does get some misconceptions about what she is actually been diagnosed with. She also has had previously complete and extensive work-ups in [place] where she was located at before coming to our area and relocating.. 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 Last tetanus immunization: up to date. - Social history:: Smoking status: Patient denies any tobacco usage or history of. ROS: 03/03 00:34 Constitutional: Negative for fever, chills, and weight loss, Eyes: Negative for injury, sd2 pain, redness, and discharge, Cardiovascular: Negative for chest pain, palpitations, and edema, Respiratory: Negative for shortness of breath, cough, wheezing. Abdomen/GI: Negative for abdominal pain, nausea, vomiting, diarrhea. Back: Negative for injury and pain. MS/Extremity: Negative for injury and deformity, Skin: Negative for injury, rash, and discoloration, Neuro: Negative for headache, numbness and tingling. : Positive for urinary symptoms, burning with urination, difficulty urinating, foul smelling urine, vaginal discharge, Negative for injury or acute deformity. Exam: 00:34 Constitutional: This is a well developed, well nourished patient who is awake, alert, sd2 and in no acute distress. Head/Face: Normocephalic, atraumatic. Eyes: EOMI, normal conjunctiva bilaterally Chest/axilla: Normal chest wall appearance and motion. Nontender with no deformity. Cardiovascular: Regular rate and rhythm with a normal S1 and S2. No gallops, murmurs, or rubs. 2+ distal pulses. Respiratory: Lungs have equal breath sounds bilaterally, clear to auscultation and percussion. No rales, rhonchi or wheezes noted. No increased work of breathing, no retractions or nasal flaring. Abdomen/GI: Soft, non-tender, with normal bowel sounds. No guarding or rebound. No evidence of tenderness throughout. Pelvic Exam: Normal external genitalia. Speculum exam with closed cervical os, moderate amount of yellow-green discharge noted without bleeding. Bimanual exam with normal adnexa, no adnexal or cervical motion tenderness. Normal uterus. Female : Normal external genitalia. Skin: Warm, dry with normal turgor. Normal color with no rashes, no lesions, and no evidence of cellulitis. MS/ Extremity: Pulses equal, no cyanosis. Neurovascular intact. Full, normal range of motion. Ambulatory without difficulty. Psych: Awake, alert, with orientation to person, place and time. Behavior, mood, and affect are within normal limits. Vital Signs: 03/02 23:51 BP 149 / 105; Pulse 111; Resp 20; Temp 98.3; Pulse Ox 99% ; Weight 46.27 kg; Height 5 kb3 ft. 4 in. (162.56 cm); Pain 8/10; 03/03 01:30 BP 128 / 100; Pulse 97; Resp 16; Pulse Ox 100% on R/A; fu 02:34 BP 133 / 99; Pulse 98; Resp 18; Pulse Ox 100% on R/A; fu 03/02 23:51 Body Mass Index 17.51 (46.27 kg, 162.56 cm) kb3 MDM: 03/02 23:59 Patient medically screened. sd2 03/03 00:34 Differential Diagnosis UTI, STI, doubt rectal prolapse, doubt uterine prolapse, sd2 hemorrhoids, among others. Data reviewed: vital signs, nurses notes, old medical records. 02:06 Data reviewed: lab test result(s). Counseling: I had a detailed discussion with the sd2 patient and/or guardian regarding: the historical points, exam findings, and any diagnostic results supporting the discharge/admit diagnosis, lab results, the need for outpatient follow up, to return to the emergency department if symptoms worsen or persist or if there are any questions or concerns that arise at home. ED course: Labs reviewed. Wet prep with clue cells consistent with BV. Pt informed and reports she has had this previously and is adamant that there is something more wrong. She states she has not been able to afford to get into any of the clinics including sliding scale clinics and specialists. She initially requested another CT scan and now is requesting an US and reports this has been ongoing for months. The patient has had extensive workups performed both in [place] and at our facility. Her exam does not show any significant abnormalities aside from the discharge which was swabbed and sent to the lab. THere is no evidence of prolapse, CMT or adnexal tenderness. Benign abdominal exam and rectal area is normal as well. Pt advised that she will need follow up with a specialist for further testing and that another CT scan is not indicated at this time. She continues to have misconceptions and believes that the CT scans each time have showed something more although there are no acute findings on the CT reports I have reviewed and discussed with the patient. I have advised her that an US would likely not add anything to her workup at this time either but the patient continues to be adamant and request an US and reports that this has not previously been performed. Pelvic US ordered and pending at this time. . 03:34 Data reviewed: radiologic studies. Counseling: I had a detailed discussion with the sd2 patient and/or guardian regarding: radiology results. ED course: US pelvis reviewed with no acute findings. Pt informed and informed of discharge plan and need for follow up outpatient once again. Advised of options to discuss with the Health Department and Social Work further options to be seen economically as well. She verbalizes understanding of discharge plan and strict return precautions. . 03/03 00:23 Order name: Urine Microscopic Only; Complete Time: 01:26 sd2 03/03 00:23 Order name: Wet Prep; Complete Time: 01:26 sd2 03/03 00:23 Order name: GC (GONORR/CHLAMYDIA) Probe sd2 03/03 00:40 Order name: Urine Dipstick-Ancillary; Complete Time: 00:50 EDMS 03/03 00:41 Order name: Urine --Ancillary (enter results); Complete Time: 00:50 oe 03/03 00:23 Order name: Urine Dipstick-Ancillary (obtain specimen); Complete Time: 00:38 sd2 03/03 00:23 Order name: Urine Test (obtain specimen); Complete Time: 00:38 sd2 03/03 01:49 Order name: US Pelvis Complete sd2 Administered Medications: No medications were administered Disposition Summary: 03/03/22 03:36 Discharge Ordered Location: Home sd2 Problem: an ongoing problem sd2 Symptoms: are unchanged sd2 Condition: Stable sd2 Diagnosis - Vaginal pain sd2 - Dysuria sd2 - Bacterial vaginosis sd2 Followup: sd2 - With: Private Physician - When: 2 - 3 days - Reason: Recheck today's complaints, Continuance of care, Re-evaluation by your physician Discharge Instructions: - Discharge Summary Sheet sd2 - Bacterial Vaginosis sd2 - Pelvic Pain, Female sd2 Forms: - Medication Reconciliation Form sd2 - Thank You Letter sd2 - Antibiotic Education sd2 - Prescription Opioid Use sd2 Prescriptions: - Metronidazole 500 mg Oral Tablet - take 1 tablet by ORAL route 2 times per day for 7 days; 14 tablet; Refills: 0, sd2 Product Selection Permitted Signatures: Dispatcher [employer] Tiffany Fang MD MD sd2 María Cormier, RN RN kb3
[2022-03-03 04:03] VITALS: TEMP 98.3
[2022-03-03 04:04] VITALS: O2SAT 100
[2022-03-03 04:05] VITALS: BP 133/99
--- NOTE | 2022-03-03 17:09 | RAD REPORT ---
EXAM DESCRIPTION: US - Pelvis Complete - 03/03/2022 3:06 am CLINICAL HISTORY: The patient is 36 years old and is Female; PAIN [facility] MAIN TECHNIQUE: Real-time complete transabdominal pelvic ultrasound with image documentation. COMPARISON: No relevant prior studies available. FINDINGS: UTERUS/CERVIX: Small nabothian cyst. Normal endometrial stripe thickness (0.4 cm). No myometrial mass. The uterus measures 7.8 x 3.5 x 5 cm. RIGHT OVARY: No dominant right ovarian follicle or cyst. Normal blood flow. The right ovary measures 2.2 x 1.8 x 2 cm. LEFT OVARY: Subcentimeter left ovarian follicles. Normal blood flow. The left ovary measures 2.8 x 148 x 2.9 cm. FREE FLUID: No free fluid. No abnormal intrapelvic mass. BLADDER: Unremarkable as visualized. Wall is normal thickness for degree of distention. IMPRESSION: No acute findings in the pelvis. 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 The interpreting radiologist is fully responsible for the content of the report.
== END 2022-03-03 03:58 | disposition home or self-care (01) ==
LOC: ER 23:30
DX: N76.0 Acute vaginitis (principal); R30.0 Dysuria
CPT/HCPCS: 76856; 81003; 81015; 81025; 87210; 87490; 87590; 99284

== ENCOUNTER 2022-03-03 07:26 | Emergency (ER) | payer SELFPAY ==
--- OUTSIDE RECORDS SUMMARY | 2022-03-03 07:31 | XMS REPORT | Continuity of Care Document ---
:1985 Author Organization [facility] t Address [address] [place] [address] Care Team Providers Name Role Phone Asked, No Pcp Primary Care Physician Unavailable Alberto Mcdaniel [facility] Attending Clinician Unavailable ERASTO MORALES Attending Clinician Unavailable LEONEL MULLER Attending Clinician Unavailable Yusuf Dc MD Attending Clinician Physician, No Primary or Family Admitting Clinician UnavailJennie Berg MA Unavailable Unavailable Klever Miner PA-C Unavailable Payers Payer Name Policy Type Policy Number Effective Date Expiration Date S ourreyna [employer] [place] D [id number] 2021 00:00:00 Women Problems Condition Condition Condition Status Onset Resolution Last Treating Co mments Source Name Details Category Date Date Treatment Clinician Date BMI BMI 14508-7 Active 2021-12-19 Silvana 2 .16.84 20.0-20.9, 20.0-20.9, 10:35:10 Jennie 0.1.113 adult adult 883.4.2 (Renamed (Renamed from Body from Body mass index mass index (BMI) of (BMI) of 20.0 to 20.0 to 20.9 in 20.9 in adult) adult) (Z68.20) (V85.1)RAMIRO Quiros [employer] Del[employer]ies 33337-9 Active 2021-12-19 Michael-Yado, 2.16. (Parity) (Parity)Cr 10:34:48 Jennie 0 .1.113 Anna 883.4.2 RAMIRO [place] ments: 3. Myalgia Myalgia 58207-1 Active 2021-12-20 Miner, 2.1 6.84 (M79.10) 11:03:27 [...] discussed. as of LISA Villavicencio Pregnancie Pregnancie 88645-7 Active 2021-12-19 Michael-Yado, 2.1684 s s 10:34:44 Jennie 0.1.113 () ()C 883 .4.2 RAMIRO Edge ments: 3. Quit using Quit using 77954-1 Active 2021-12-19 Michael-Yado, 2.16 tobacco tobacco 10:35:01 Jennie 0.1.1 13 (Renamed (Renamed 883.4. 2 from Quit from Quit using using tobacco in tobacco in remote remote past) past) (Z91.89) (V15.89)RAMIRO [place] [address]-2 Active 2021-12-20 Miner, 2.16 alcoholism alcoholism 10:56:48 Klever 0.1.113 (F10.21) 883.4.2 (V11.3)LISA [place] [address]-3 Active 2021-12-20 Kristofer, 2. depression depression 10:56:32 Klever 0.1.113 (Z86.59) 883.4.2 (V11.8)LISA [place] [address]-5 Active 2021-12-20 Kristofer, 2. 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 lesion of lesion [...] l s to drug morphine DA Active [facility] Active [place] [facility] [facility] Morphine Allergy Active 04.12.83 Derivati 0.1.113 ves 883.4.2 Social History Social Habit Start Date Stop Date Quantity Comments Source Alcohol Use: Non Drinker / No 2.16.8 40.1.058814 Alcohol Use. .4.2 Drug Use: No drug use. 2..840.1.1 96694 .4.2 Tobacco use: Never smoker. 2.840. 1.892056 .4.2 Tobacco/Smoke None. 2.16.840.1. 801598 Exposure: .4.2 Vaping/JUULing: Never smoker. 2.16.8 40.1.020581 .4.2 Sex Assigned At [birth year] [facility] Smoking Status Start Date Stop Date Source Never smoked tobacco Tobacco smoking consumption unknown [facility] Medications Ordered Filled [...] (six) hours for 10 days. HYDROcodone 2021-02 Yes 1{tbl} Q6H Take 1 [facility] -acetaminop 0-14 10-[address] [employer] ([employer]) 00:00: 04:59 mouth Hosp quoc 5-325 mg 00 :00 every 6 l per tablet (six) hours as needed for moderate pain for up to 7 days .acute pain. Max Daily Amount: 4 tablets HYDROcodone 2021-02 1{tbl} Q6H Take 1 [facility] -acetaminop 0-14 10-[address] [employer] ([employer]) 00:00: 04:59 mouth Hosp quoc 5-325 mg 00 :00 every 6 l per tablet (six) hours as needed for moderate pain for up to 7 days .acute pain. Max Daily Amount: 4 tablets HYDROcodone 2021-02- 28 1{tbl} Q6H Take 1 [facility] -acetaminop 0-14 10-[address] hen ([employer]) 00:00: 04:59 mouth Hosp quoc 5-325 mg 00 :00 every 6 l per tablet (six) hours as needed for moderate pain for up to 7 days .acute pain. Max Daily Amount: 4 tablets HYDROcodone 2021-02- 1{tbl} Q6H Take 1 [facility] -acetaminop 0-14 10-22 tablet by xavi ([employer]) 00:00: 04:59 mouth Hosp quoc 5-325 mg [...] 83.4.2 Respiration Rate 2021-12-19 20 /min Pattern: 2.16.840.1. 1138 10:29:13 Unlabored 83.4.2 BP Systolic 2021-12-19 [...] 10:29:13 83.4.2 Systolic blood 2021-12-08 142 mm[Hg] [facility] pressure 17:30:00 Hospital Diastolic blood 2021-12-08 89 mm[Hg] [facility] pressure 17:30:00 Hospital Heart rate 2021-12-08 56 /min [facility] 17:30:00 Hospital Body temperature 2021-12-08 37 Pattie [facility] 17:30:00 Hospital Respiratory rate 2021-12-08 17 /min [facility] 17:30:00 Hospital Oxygen saturation 2021-12-08 96 /min [facility] in Arterial blood 17:30:00 [facility] by Pulse oximetry Body height 2021-12-08 162.6 cm [facility] 14:06:00 [facility] Body weight 2021-12-08 56.7 kg [facility] 14:06:00 [facility] BMI 2021-12-08 21.46 kg/m2 [facility] 14:06:00 [facility] Procedures Procedure Date / Time Performing Clinician Source Performed BMI IS DOCUMENTED WITHIN 2021-12-19 00:00:00 Klever Miner 2.1 6.840.1.108128.4 NORMAL PARAMETERS AND NO .2 FOLLOW-UP PLAN IS REQUIRED (G8420) PATIENT SCREENED FOR 2021-12-19 00:00:00 Klever Miner 2.16.84 0.1.815964.4 TOBACCO USE AND .2 IDENTIFIED A TOBACCO NON-USER (G9903) SCREENING FOR TOBACCO USE 2021-12-19 00:00:00 Klever Miner 2. 16.840.1.790655.4 (4004F) .2 CBC WITH PLATELET AND 2021-12-08 16:24:00 Yusuf Dc [facility] DIFFERENTIAL CT HEAD WO CONTRAST 2021-12-08 15:38:10 Yusuf Dc [facility] XR CHEST 1 VW PORTABLE 2021-12-08 15:37:46 Yusuf Dc [facility] ECG ED PRELIMINARY 2021-12-08 15:00:29 Yusuf Dc [facility] INTERPRETATION COMPREHENSIVE METABOLIC 2021-12-08 14:51:00 Yusuf Dc [facility] PANEL TROPONIN T 2021-12-08 14:51:00 Yusuf Dc spital HCG QUALITATIVE, SERUM 2021-12-08 14:51:00 Yusuf Dc [facility] SCREEN ESTIMATED GFR 2021-12-08 14:51:00 Yusuf Dc spital ECG 12-LEAD 2021-12-08 14:44:31 Yusuf Dc spital Annual Eye Exam - FOR Jennie Pina 2.16.84 0.1.858377.4 NON-DIABETICS ONLY .2 Appendectomy Jennie Pina 2.16.840.1.11 3883.4 .2 Delivery MichaelDrewSaúlJennie 2.16.840.1. 003110.4 .2 Patient received annual Jennie Pina 2.16. 840.1.592088.4 dental check-up .2 Plan of Care Planned Activity Planned Date Details Comments Source Future Scheduled 2022-02-12 COVID-19 VACCINE (#1) [facility] Test 23:05:27 [code = COVID-19 VACCINE (#1)] Future Scheduled 2022-02-12 Hepatitis C screening [facility] Test 23:05:27 (procedure) [code = 521895633] Future Scheduled 2022-02-12 Screening for [facility] Test 23:05:27 malignant neoplasm of cervix (procedure) [code = 039413807] Future Scheduled 2022-02-12 [facility]ACCINE [facility] 23:05:27 [code = INFLUENZA VACCINE] Future Scheduled 2022-02-12 COVID-19 VACCINE (#1) [facility] Test 23:05:27 [code = COVID-19 VACCINE (#1)] Future Scheduled 2022-02-12 Hepatitis C screening [facility] Test 23:05:27 (procedure) [code = 523997377] Future Scheduled 2022-02-12 [facility] for [facility] Test 23:05:27 malignant neoplasm of cervix (procedure) [code = 341443394] Future Scheduled 2022-02-12 [facility]ACCINE [facility] Test 23:05:27 [code = INFLUENZA VACCINE] Future Scheduled 2022-01-24 HEPATITIS B VACCINES [facility] Test 21:26:31 (1 of 3 - 3-dose series) [code = HEPATITIS B VACCINES (1 of 3 - 3-dose series)] Future Scheduled 2022-01-24 COVID-19 VACCINE (#1) [facility] Test 21:26:31 [code = COVID-19 VACCINE (#1)] Future Scheduled 2022-01-24 Hepatitis C screening [facility] Test 21:26:31 (procedure) [code = 950198533] Future Scheduled 2022-01-24 [facility] for [facility] Test 21:26:31 malignant neoplasm of cervix (procedure) [code = 840023232] Future Scheduled 2022-01-24 [facility]FL[facility]ZA VACCINE [facility] Test 21:26:31 [code = INFLUENZA VACCINE] Diagnostic Test 2021-12-19 C-REACTIVE PROTEIN Pending 10:50:25 ([id number]) [code = 72231] Diagnostic Test 2021-12-19 C-REACTIVE PROTEIN Pending 10:50:25 ([id number]) [code = 39932] Diagnostic Test 2021-12-19 SED RATE ERYTHROCYTE Pending 10:50:19 ([id number]) [code = 97136] Diagnostic Test 2021-12-19 SED RATE ERYTHROCYTE Pending 10:50:19 ([id number]) [code = 97316] Diagnostic Test 2021-12-19 MONOSPOT SCREEN Pending 10:49:43 (50898) [code = 38883] Diagnostic Test 2021-12-19 MONOSPOT SCREEN Pending 10:49:43 (52213) [code = 60078] Diagnostic Test 2021-12-19 TSH (THYROID Pending 10:49:36 STIMULATING HORMONE) ([id number]) [code = 78243] Future Scheduled 2021-12-14 HEPATITIS B VACCINES [facility] Test 19:27:04 (1 of 3 - 3-dose series) [code = HEPATITIS B VACCINES (1 of 3 - 3-dose series)] Future Scheduled 2021-12-14 COVID-19 VACCINE (#1) [facility] Test 19:27:04 [code = COVID-19 VACCINE (#1)] Future Scheduled 2021-12-14 Hepatitis C screening [facility] Test 19:27:04 (procedure) [code = 111622115] Future Scheduled 2021-12-14 [facility] for [facility] Test 19:27:04 malignant neoplasm of cervix (procedure) [code = 877042913] Future Scheduled 2021-12-14 INFLUENZA VACCINE [facility] Test 19:27:04 [code = INFLUENZA VACCINE] Encounters Start End Encounter Admission Attending Care Care Encounter Source Date/Time Date/Time Type Type Clinicians Facility Department ID 2021-12-17 Outpatient Cynthia Elmore [facility] [id number] [place] 17:22:22 [facility] [id number] [facility] 2021-12-15 Outpatient Cynthia Elmore [facility] [id number] [place] 10:10:04 [facility] [id number] [facility] 2021-12-14 Outpatient Burnet, [facility] [id number] [place] 14:42:40 [facility] [id number] [facility] 2019-03-05 Inpatient [facility] JAYDEN [id number] [facility] 14:39:00 [id number] [facility] 2021-12-19 2021-12-20 Office 0 Alberto [id number] 10:00:00 11:03:47 Visit 06 2021-12-19 2021-12-19 Outpatient Burnet, [facility] [id number] [place] 10:15:00 10:15:00 [facility] [id number] [facility] 2021-12-18 2021-12-19 Emergency E ANDREW, [facility] [id number] [facility]W 20:53:00 05:50:00 ERASTO 2021-12-14 2021-12-15 Emergency E YOHANA, M[facility] M[facility] [id number] MHTW 19:46:00 02:45:00 LEONEL 2021-12-08 2021-12-08 Emergency Dc, 1.2.840.1 [id number] [id number] [facility] 09:07:00 12:44:00 Yusuf Cordero [address] 3.430.2.7 Hospit a .3.927536 l .8 2021-12-08 2021-12-08 Emergency Dc, 1.2.840.1 [id number] 2099 [id number] [facility] 09:07:00 12:44:00 Yusuf Cordero [address] 3.430.2.7 Hospit a .3.678032 l .8 2021-12-08 2021-12-08 Travel 1.2.840.1 1.2.163.966 [id number] [facility] 00:00:00 00:00:[address] 3.430.2.7 0.2.7.3.698 Ho spita .3.242660 084.8 l .8 2021-12-08 2021-12-08 Travel 1.2.840.1 1.2.386.149 1484 [id number] [facility] 00:00:00 00:00:[address] 3.430.2.7 0.2.7.3.698 Ho spita .3.500456 084.8 l .8 2018-06-09 2018-06-09 Emergency E MHTW TW [id number] MHTW 13:55:00 13:55:00 Results Test Description Test Time Test Comments Results Result Comments Source TSH (THYROID STIMULATING HORMONE) (40396) 2021-12-19 00:00:0 0 Test Item Value Reference Range Interpretation Comme nts TSH (test code = 3016-3) 2.24 {mIU/L} N Ref erence Range > or = 20 Years 0.40-4.50 Range s First trimester 0.26-2.66 Second trimeste r 0.55-2.73 Third trimester 0.43-2.91Test P erformed at:[facility] [id number] [place] [address] ROHIT WHITNEY MD ECG 12 [id number] 20:07:15 Test Item Value Reference Range Interpretation Comments Ventricular rate (test code = 253) Atrial rate (test code = 255) [place] interval (test code = 266) QRSD interval [...] John Henderson ([id number]) on 12/13/2021 3:07:08 [facility] [id number] 20:07:15 Test Item Value Reference Range Interpretation Comments Ventricular rate (test code = 253) Atrial rate (test code = 255) TX interval (test code = 266) QRSD interval [...] Meek MD ([id number]) on 12/13/2021 3:07:08 PM [facility] 12 [id number] 20:07:15 Test Item Value Reference Range Interpretation Comments Ventricular rate (test code = 253) Atrial rate (test code = 255) [place] interval (test code = 266) QRSD interval [...] Meek MD ([id number]) on 12/13/2021 3:07:08 PM [place] [address] [id number] 20:07:15 Test Item Value Reference Range Interpretation Comments Ventricular rate (test code = 253) Atrial rate (test code = 255) [place] interval (test code = 266) QRSD interval [...] Meek MD ([id number]) on 12/13/2021 3:07:08 PM [facility] [id number] 15:42:00 Test Item Value Reference Range Interpretation [...] <50 MG 1 NORMAL = LIPINDEX) Index/DL [id number] 15:42:00 Test Item Value Reference Range Interpretation Comments LIPASE (test code = LIP) 42 Unit/L 114-286 L HEPATIC FUNCTION [id number] 15:34:00 Test Item Value Reference Range Interpretation [...] <50 MG 1 NORMAL = LIPINDEX) Index/DL [id number] 15:34:00 Test Item Value Reference Range Interpretation Comments LIPASE (test code = LIP) Unit/L 114-286 CBC W/O [id number] 15:19:00 Test Item Value Reference Range Interpretation [...] 9.2 fL 6.8-11.2 N MPV) CHEMISTRY 7 [id number] 15:15:00 Test Item Value Reference Range Interpretation [...] POC (test code = GFRBED) CHEMISTRY 7 [id number] 15:15:00 Test Item Value Reference Range Interpretation [...] = GFRBED) UA RFLX MICR CULT IF [id number] 15:13:00 Test Item Value Reference Range Interpretation [...] Criteria Indication for culture: ABD PAINUR HCG [id number] 15:13:00 Test Item Value Reference Range Interpretation Comments UR HCG QUAL (test code = HCGQLU) NEG Indication for culture: ABD PAINUA RFLX MICR CULT IF [id number] 15:13:00 Test Item Value Reference Range Interpretation [...] CULTURE NEEDED? (test Crit met [facility] code = UACULT) Criteria Indication for culture: ABD PAINUR HCG [id number] 15:13:00 Test Item Value Reference Range Interpretation Comments UR HCG QUAL (test NEGATIVE NEG Very dilut e urines with a code = HCGQLU) low specific gravity may notcontain repr esentative levels of hCG. Indication for culture: ABD PAIN
[2022-03-03 08:30] LABS: Absolute Lymphocytes (CBC) 1.7 K/uL (0.7-4.9); Lymphocytes % 23.3 % (15.3-44.8); MCV 93.2 fL (80-100); MPV 7.4 fL (7.6-11.3); RBC Red Blood Cell Count 4.29 M/uL (3.86-4.86)
[2022-03-03 09:00] LABS: Potassium 3.5 mmol/L (3.5-5.1)
--- NOTE | 2022-03-03 09:00 | RAD REPORT ---
EXAM DESCRIPTION: CTAbdomen Pelvis W Contrast - 03/03/2022 8:48 am CLINICAL HISTORY: lower abd/pelvic pain COMPARISON: Abdomen Pelvis W Contrast dated 02/08/2022; Abdomen Pelvis W Contrast dated 2; Pelvis Complete dated 03/03/2022 TECHNIQUE: CT of the abdomen and pelvis was performed with IV contrast. All CT scans are performed using dose optimization technique as appropriate and may include automated exposure control or mA/KV adjustment according to patient size. FINDINGS: Lower chest: No acute abnormality. Liver: No acute abnormality or suspicious lesions. Biliary: No biliary ductal dilatation. Stomach: Surgical clips along the lesser curvature of the stomach. Duodenum: No significant focal abnormality. Pancreas: No significant abnormality. Spleen: No significant abnormality. Adrenal: No suspicious lesions. Kidney/ureter: No hydronephrosis. No renal calculi. Retroperitoneum: No retroperitoneal adenopathy. Vascular: No aneurysm. Bowel: Mild fecalization of distal small bowel contents. No appendicitis.. Peritoneum: No ascites or free air. Bladder: Grossly unremarkable. Reproductive: No adnexal masses. Bones: No acute fracture. Other: n/a IMPRESSION: No acute intra-abdominal or pelvic finding. No significant change from 02/08/2022.
--- NOTE | 2022-03-03 09:20 | EDPHYS ---
Physician Documentation [facility] Name: Betzaida Ceja Age: 36 yrs Sex: Female : 1985 Arrival Date: 03/03/2022 Time: 07:28 Bed 6 Private MD: ED Physician Julio Cesar Leong HPI: 03/03 09:13 This 36 yrs old Female presents to ER via Ambulatory with complaints of Vaginal Pain, rn Rectal Pain. 09:13 The patient presents with pelvic pain, urinary symptoms. rn 09:14 Onset: The symptoms/episode began/occurred 2 month(s) ago. Modifying factors: The rn symptoms are alleviated by nothing, the symptoms are aggravated by urinating. Severity of symptoms: At their worst the symptoms were moderate, in the emergency department the symptoms are unchanged. The patient has experienced similar episodes in the past. The patient has been recently seen by a physician: The patient has been recently seen at the [facility] Emergency Department. Pt reports month of lower pelvic pain, burning upon urination, constipation. NO weight loss, no fever. 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 She was upset with ER doc last night, told she could wait until AM ER doc comes on and she signed back in. No new symptoms. 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 Pt frustrated with length of time she has had symptoms. . 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 - Social history:: Smoking status: Patient denies any tobacco usage or history of. - Family history:: not pertinent. - Hospitalizations: : No recent hospitalization is reported. ROS: 09:14 Constitutional: Negative for fever, chills, and weight loss, Eyes: Negative for injury, rn pain, redness, and discharge, Cardiovascular: Negative for chest pain, palpitations, and edema, Respiratory: Negative for shortness of breath, cough, wheezing, and pleuritic chest pain, Abdomen/GI: Negative for nausea, vomiting, diarrhea Back: Negative for injury and pain, : Negative for injury, discharge, and swelling MS/Extremity: Negative for injury and deformity, Skin: Negative for injury, rash, and discoloration, Neuro: Negative for headache, weakness, numbness, tingling, and seizure. Exam: 09:14 Constitutional: Thin female no acute distress, ambulatory upright to room without rn difficulty or assistance. Head/Face: Normocephalic, atraumatic. Cardiovascular: Regular rate and rhythm. No pulse deficits. Respiratory: No increased work of breathing, no retractions or nasal flaring. Abdomen/GI: soft, mild lower abd pain, no peritoneal signs Pelvic Exam: Pelvic exam not performed because just had pelvic exam in last [address] Nova. Skin: Warm, dry MS/ Extremity: Pulses equal, no cyanosis Neuro: Awake and alert, GCS 15 Vital Signs: 07:32 Pulse 110; Resp 15; Temp 98.6(O); Pulse Ox 100% on R/A; Weight 59.87 kg; Height 5 ft. 4 vg1 in. (162.56 cm); Pain 7/10; 08:19 BP 136 / 99; Pulse 88; Resp 19 S; Pulse Ox 98% on R/A; aa5 09:20 BP 130 / 99; Pulse 91; Resp 16 S; Pulse Ox 100% on R/A; aa5 07:32 Body Mass Index 22.66 (59.87 kg, 162.56 cm) vg1 MDM: 07:30 Patient medically screened. rn 09:14 Differential diagnosis: endometriosis, malignancy, menometrorrhagia, nonspecific rn abdominal pain, ovarian cyst, uterine fibroids, urinary tract infection. Data reviewed: vital signs, nurses notes, old medical records, lab test result(s), radiologic studies, CT scan, and as a result, I will discharge patient. Counseling: I had a detailed discussion with the patient and/or guardian regarding: the historical points, exam findings, and any diagnostic results supporting the discharge/admit diagnosis, lab results, radiology results, the need for outpatient follow up, to return to the emergency department if symptoms worsen or persist or if there are any questions or concerns that arise at home. Special discussion: I discussed with the patient/guardian in detail that at this point there is no indication for admission to the hospital. It is understood, however, that if the symptoms persist or worsen the patient needs to return immediately for re-evaluation. Based on the history and exam findings, there is no indication for further emergent testing or inpatient evaluation. I discussed with the patient/guardian the need to see the OB Gyne specialist for further evaluation of the symptoms. I discussed with the patient/guardian the need to see the primary care provider for further evaluation of the symptoms. 03/03 08:13 Order name: CBC with Diff; Complete Time: 09:13 rn 03/03 09:13 Interpretation: Within normal limits. rn 03/03 08:13 Order name: Basic Metabolic Panel; Complete Time: 09:13 rn 03/03 09:13 Interpretation: Within normal limits. rn 03/03 08:13 Order name: IV Start; Complete Time: 08:20 rn 03/03 08:13 Order name: CT Abd/Pelvis - IV Contrast Only; Complete Time: 09:13 rn 03/03 09:13 Interpretation: No acute disease. rn 03/03 08:34 Order name: Labs - recollect needed: blood hemolyzed; Complete Time: 08:41 eb Administered Medications: No medications were administered Disposition Summary: 03/03/22 09:18 Discharge Ordered Location: Home rn Problem: chronic rn Symptoms: are unchanged rn Condition: Stable rn Diagnosis - Pelvic and perineal pain rn Followup: rn - With: Private Physician - When: As needed - Reason: Recheck today's complaints, Re-evaluation by your physician Discharge Instructions: - Discharge Summary Sheet rn - Abdominal Pain, Adult rn - Pain Without a Known Cause rn - Pelvic Pain, Female rn Forms: - Medication Reconciliation Form rn - Thank You Letter rn - 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 Head/Face: Normocephalic, atraumatic. Cardiovascular: Regular rate and rhythm. No pulse deficits. Respiratory: No increased work of breathing, no retractions or nasal flaring. Abdomen/GI: soft, mild lower abd pain, no peritoneal signs Skin: Warm, dry MS/ Extremity: Pulses equal, no cyanosis Neuro: Awake and alert, GCS 15 rn
--- NOTE | 2022-03-03 09:20 | ER ---
Nurse's Notes [facility] Name: Betzaida Ceja Age: 36 yrs Sex: Female : 1985 Arrival Date: 03/03/2022 Time: 07:28 Bed 6 Private MD: Diagnosis: Pelvic and perineal pain Presentation: 03/03 07:32 Chief complaint: Patient states: vaginal pain since x 2 days with abnormal bleeding x 2 vg1 months and stated two days ago while urinating "passed tissue" denies it being a clot. States burning upon urination with lower back pain, and pressure in ABD. Stated nausea. Coronavirus screen: Vaccine status: Patient reports being unvaccinated. Client denies travel out of the [place] in the last 14 days. Ebola Screen: Patient negative for fever greater than or equal to 101.5 degrees Fahrenheit, and additional compatible Ebola Virus Disease symptoms. Initial Sepsis Screen: Does the patient meet any 2 criteria? No. Patient's initial sepsis screen is negative. Does the patient have a suspected source of infection? No. Patient's initial sepsis screen is negative. Risk Assessment: Do you want to hurt yourself or someone else? Patient reports no desire to harm self or others. Onset of symptoms was March 01, 2022. 07:32 Method Of Arrival: Ambulatory [facility] 07:32 Acuity: DAPHNEY 3 vg1 Triage Assessment: 07:38 General: Appears uncomfortable, Behavior is cooperative. Pain: Complains of pain in vg1 pelvis Pain currently is 7 out of 10 on a pain scale. GI: Reports nausea. : Reports burning with urination, vaginal bleeding that is. 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 - Social history:: Smoking status: Patient denies any tobacco usage or history of. - Family history:: not pertinent. - Hospitalizations: : No recent hospitalization is reported. Screenin:05 [facility] ED Fall Risk Assessment (Adult) Score/Fall Risk Level 0 - 2 = Low Risk hb Oriented to surroundings, Maintained a safe environment. Abuse screen: Denies threats or abuse. Denies injuries from another. Nutritional screening: No deficits noted. Tuberculosis screening: No symptoms or risk factors identified. Assessment: 07:50 General: Appears uncomfortable, Behavior is cooperative. Pain: Complains of pain in aa5 pelvis Pain currently is 7 out of 10 on a pain scale. Quality of pain is described as dull, pressure, Pain began 2 months ago Is intermittent. Neuro: Level of Consciousness is awake, alert, obeys commands, Oriented to person, place, time, situation. Cardiovascular: Heart tones S1 S2 present Rhythm is regular. Respiratory: Airway is patent Respiratory effort is even, unlabored, Respiratory pattern is regular, symmetrical. GI: Abdomen is flat, non-distended, Bowel sounds present X 4 quads. Abd is soft X 4 quads Patient currently denies diarrhea, nausea, vomiting. : Reports vaginal bleeding that is on and off x 2 months ago, currently denies any vaginal bleeding, denies vaginal discharge. States "I have some burning but only when I pee because everything is pushing down". EENT: No signs and/or symptoms were reported regarding the EENT system. Derm: Skin is pink, warm \\T\\ dry. Musculoskeletal: Range of motion: intact in all extremities. 08:19 Reassessment: Patient is alert, oriented x 3, equal unlabored respirations, skin aa5 warm/dry/pink. Pt sitting up in bed. . 08:40 Reassessment: Labs recollected, sent to lab. Pt to CT via wheelchair. . aa5 08:56 Reassessment: Patient appears in no apparent distress at this time. Patient and/or hb family updated on plan of care and expected duration. Pain level reassessed. Patient is alert, oriented x 3, equal unlabored respirations, skin warm/dry/pink. 09:32 Reassessment: Patient is alert, oriented x 3, equal unlabored respirations, skin aa5 warm/dry/pink. Vital Signs: 07:32 Pulse 110; Resp 15; Temp 98.6(O); Pulse Ox 100% on R/A; Weight 59.87 kg; Height 5 ft. 4 vg1 in. (162.56 cm); Pain 7/10; 08:19 BP 136 / 99; Pulse 88; Resp 19 S; Pulse Ox 98% on R/A; aa5 09:20 BP 130 / 99; Pulse 91; Resp 16 S; Pulse Ox 100% on R/A; aa5 07:32 Body Mass Index 22.66 (59.87 kg, 162.56 cm) vg1 ED Course: 07:28 Patient arrived in ED. am2 07:30 Julio Cesar Leong MD is Attending Physician. rn 07:38 Triage completed. vg1 07:38 Arm band placed on. vg1 07:42 Johanna Doll, RN is Primary Nurse. aa5 08:05 Patient has correct armband on for positive identification. hb 08:19 Initial lab(s) drawn, by me, sent to lab. Inserted saline lock: 20 gauge in right aa5 antecubital area, using aseptic technique. Blood collected. 08:50 CT Abd/Pelvis - IV Contrast Only In Process Unspecified. EDMS 09:32 No provider procedures requiring assistance completed. IV discontinued, intact, aa5 bleeding controlled, No redness/swelling at site. Pressure dressing applied. Administered Medications: No medications were administered Medication: 09:32 VIS not applicable for this client. aa5 Outcome: 09:18 Discharge ordered by . rn 09:32 Discharged to home ambulatory. aa5 09:32 Condition: stable 09:32 Discharge instructions given to patient, Instructed on discharge instructions, follow up and referral plans. medication usage, Demonstrated understanding of instructions, follow-up care, medications, Prescriptions given X 1. 09:33 Patient left the ED. aa5 Signatures: Dispatcher [employer] EDMS Julio Cesar Leong MD MD rn Calderon, Audri, RN RN aa5 Maria D Lindsay RN CARLOS Annabelle Benjamin am2 Antonella Vasques RN RN vg1
[2022-03-03 09:43] VITALS: TEMP 98.6
[2022-03-03 09:58] VITALS: BP 130/99; O2SAT 100
== END 2022-03-03 09:33 | disposition home or self-care (01) ==
LOC: ER 07:26
DX: R10.2 Pelvic and perineal pain (principal)
CPT/HCPCS: 36415; 74177; 80048; 85025; 99284; Q9967